=== PATIENT | female | born 1955 | race Caucasian/White ===

== ENCOUNTER → 2016-04-06 | Day surgery (SDC) | payer BC ==
[2016-03-30 13:46] VITALS: Ht 160 cm; Wt 71.8 kg
[~2016-04-06] VITALS: Ht 160 cm; Wt 71.8 kg
[~2016-04-06] MED LIST: 500ML BSS 0.3ML EPI 1:1000PF IRRIG ONE; ACETAMINOPHEN 325 MG TAB PO PRN; AMLO-110 PO; AMVISC PLUS 0.8ML SYRINGE INT OCU ONE; ATROPINE SULFATE 0.1 MG/ML 5ML SYR IV PRN; AcetaZOLAMIDE 250 MG TAB PO SCH; BETAXOLOL HCL 0.25% OP SUSP PER DROP CHARGE OPR SCH; BRIMONIDINE TART 0.2% OP SOLN PER DROP CHARGE ONE; BSS FLUSH ONE; CINN500T PO; ENDOCOAT 0.85ML SYRINGE INT OCU ONE; EpHEDrine SULFATE INJ 50 MG/ML AMP IV PRN; EpINEphrine INJ 1MG/ML AMP 1 MG/ML AMP ONE; FENTANYL CITRATE INJ 50 MCG/1 ML 2 ML VIAL IV PRN; FLAX1CAP11 PO; FLUMAZENIL 0.1 MG/1 ML 10 ML VIAL IV PRN; GLC/500 PO; GLC500 PO; GLUCTAB7 PO; HYDROmorphone INJ 2 MG/ML SYR/VIAL IV PRN; LABETALOL HCL IV 5 MG/ML 20ML IV PRN; LACTATED RINGER'S 1000ML 500 ML IV SCH; LIDOCAINE 4% OP SOLN DROP CHARGE ONE; LIDOCAINE 4% OP SOLN DROP CHARGE OPR SCH; LIDOCAINE HCL 1% MPF 2 ML VIAL ONE; LISI-725 PO; MELO15TA4 PO; MEPERIDINE HCL 25 MG/ML CARP IV PRN; MIDAZOLAM HCL 1 MG/ML 2ML VIAL ONE; MIX: 4ML BSS 1ML EPI 1:1000 PF INSTIL ONE; MOXIFLOXACIN OPH SOLN PER DROP CHARGE ONE; MULT-1016 PO; NALOXONE HCL 0.4 MG/1 ML VIAL/CARP IV PRN; OCUCOAT 1 ML SOLN IO ONE; ONDANSETRON INJ 2 MG/ML 2 ML VIAL IV PRN; PHENYLEPHRINE 100MCG/ML 5ML SYR IV PRN; POVIDONE-IODINE OP SOLN 30 ML BTL ONE; PROPARACAINE 0.5% OP SOLN PER DROP CHARGE OPR SCH; SIMV20TA2 PO; TOBRAMYCIN/DEXAMETHASONE OPH OINT PER APPLN CHARGE ONE; TRAJENTA PO; VISCOAT 0.5ML SYRINGE INT OCU ONE
[2016-04-06] MEDS: PHENYLEPHRINE HCL 2.5% OP SOLN PER DROP CHARGE OPR SCH ×2 (07:27→07:31)
[2016-04-06] MEDS: TROPICAMIDE 1% OP SOLN PER DROP CHARGE OPR SCH ×2 (07:28→07:32)
[2016-04-06] MEDS: CYCLOPENTOLATE HCL 1% OP SOLN PER DROP CHARGE OPR SCH ×2 (07:29→07:33)
[2016-04-06] MEDS: MOXIFLOXACIN OPH SOLN PER DROP CHARGE OPR SCH ×2 (07:30→07:40)
--- NOTE | 2016-04-06 07:30 | History & Physical Bridge - SC ---
H&P Re-Evaluation Bridge Note: I have examined the patient, reviewed the History & Physical and in the interval since the performance of the History & Physical I have noted the following changes of clinical significance: No changes noted
--- NOTE | 2016-04-06 08:26 | Discharge Instructions-SurgCtr ---
Discharge Instructions Visit Reason for Visit: Cataract Right Eye Discharge Goals Goal(s): Improve function Medications Stopped Medications Name(s): Stopped Metformin Monday04/04/16. Activity Recommendations Lifting Limitations: no more than 10 pounds Exercise/Sports Limitations: gradually increase as tolerated May Resume Sexual Activity: when tolerated Shower/Bathe: tomorrow Driving or Machine Use: resume 1 day after discharge Anesthesia . Post Anesthesia Instructions: If you have had General Anesthesia or IV Sedation: * Do not drive today. * Resume driving when surgeon permits. * Do not make important decisions or sign legal documents today. * Call surgeon for: 1. Temperature elevations greater than 101 degrees F. 2. Uncontrollable pain. 3. Excessive bleeding. 4. Persistent nausea and vomiting. 5. Medication intolerance (nausea, vomiting or rash). * For nausea and vomiting use only clear liquids such as: tea, soda, bouillon until nausea subsides, then gradually increase diet as tolerated. * If you have any concerns or questions, call your surgeon's office. If physician is unavailable and it is an emergency, call 911 or go to the nearest emergency room. . Instructions / Follow-Up Instructions / Follow-Up ACTIVITY RECOMMENDATIONS: * Light activities. * Mild irritation and blurred vision are common for the first few days. * You may walk outside, read, watch television. * Redness around the white part of the eye is common. MEDICATIONS: Resume previous medications unless instructed otherwise by your surgeon. * Take white Diamox (Acetazolamide) tablet at 1 pm today. Start all eye drops at 1 pm today: * Eye drops (today and tomorrow): Prednisone - one drop in operative eye every 3 hours while awake Ofloxacin - one drop in operative eye every 3 hours while awake SPECIAL CARE INSTRUCTIONS: * Tape plastic shield over eye to sleep at night. Call your doctor at with any concerns or problems. FOLLOW UP VISIT: Follow-up with Dr Krishna at [place] office as scheduled. Diet Recommendations Home Diet: resume previous diet Medical Emergencies . Who to Call and When: Medical Emergencies: If at any time you feel your situation is an emergency, please call 911 immediately. . Non-Emergent Contact . . "Provider Documentation" section prepared by Juan Manuel Krishna.
[2016-04-06 08:54] VITALS: TEMP 36.4
--- NOTE | 2016-04-06 08:55 | [facility] Post Operative Brief Note ---
Immediate Operative Summary Operative Date Apr 06, 2016. Pre-Operative Diagnosis Cataract Right Eye Post-Operative Diagnosis Same Procedure(s) Performed Right Cataract Phacoemulsification With Intraocular Lens Implant Surgeon Dr. Krishna Database Marketing Analyst Surgeon(s) None Estimated Blood Loss None Findings Cortical cataract right eye Fluids (cc crystalloids) 300 ml Specimens None Drains none Anesthesia L/S Complication(s) None Disposition Recovery Room / PACU
--- NOTE | 2016-04-06 09:15 | Anesthesia Progress Nt - [facility] ---
Anesthesia Post Op Note Date & Time Apr 06, 2016 at 09:14 Vital Signs Pain Intensity: 0 Vital Signs Past 12 Hours Date Time Temp Pulse Resp B/P Pulse Ox O2 Delivery O2 Flow Rate FiO2 04/06/16 08:54 36.4 70 16 149/81 98 Room Air 04/06/16 07:19 36.4 68 16 184/98 99 Room Air Notes Mental Status: alert / awake / arousable, participated in evaluation Pt Amnestic to Procedure: Yes Nausea / Vomiting: adequately controlled Pain: adequately controlled Airway Patency, RR, SpO2: stable & adequate BP & HR: stable & adequate Hydration State: stable & adequate Anesthetic Complications: no major complications apparent
[2016-04-06 09:16] VITALS: BP 157/84; PULSE 69; O2SAT 97
--- NOTE | 2016-04-06 09:18 | OPERATIVE REPORT ---
DATE OF OPERATION: 04/06/2016 PREOPERATIVE DIAGNOSIS: Presenile cortical cataract, right eye. POSTOPERATIVE DIAGNOSIS: Same. PROCEDURE: Phacoemulsification of right cataract with posterior chamber lens implant, type Bausch \T\ Lomb HOYA iSert 250, power +20.0 Diopters. ANESTHESIA: Local standby. SURGEON: Dr. Krishna. COMPLICATIONS: None. OPERATING TIME: 10 minutes. OPERATION AND FINDINGS: PROCEDURE: The right pupil was dilated. The anesthetic was administered using a topical technique. The right eye was prepped and draped. A speculum was placed. A paracentesis was placed. The chamber was filled with Amvisc Plus and Viscoat. Epinephrine solution was used. A clear corneal incision was formed. A capsulorrhexis was performed. The nucleus was hydrodissected. The lens was removed with phacoemulsification. Time was 2.13 seconds. The aspiration unit was used to remove the cortex. The capsule was filled with Amvisc Plus. The lens implant was folded and placed into the capsule. The incision was hydrated. The Amvisc was aspirated. The wound was secure. The chamber was deep. The pupil was round. Alphagan and TobraDex ointment and Vigamox solution were placed. The speculum was removed. DISPOSITION: The patient was returned to the recovery room in stable condition. I attest to the content of the Intraoperative Record and any orders documented therein. Any exceptions are noted below. I attest to the content of the Intraoperative Record and any orders documented therein. Any exceptions are noted below. STEPHANIE
== END | disposition home or self-care (01) ==
LOC: X.SURG 07:07
PROVIDERS: ATTEND Specialist
DX: H25.011 Cortical age-related cataract, right eye (principal); I10 Essential (primary) hypertension; E11.9 Type 2 diabetes mellitus without complications; Z88.0 Allergy status to penicillin

== ENCOUNTER 2016-07-01 22:24 | Emergency (ER) | payer OTHER, BC ==
[~2016-07-01] VITALS: Ht 160 cm; Wt 72.6 kg
[~2016-07-01 22:24] MED LIST changes: -500ML BSS 0.3ML EPI 1:1000PF IRRIG ONE; -ACETAMINOPHEN 325 MG TAB PO PRN; -AMVISC PLUS 0.8ML SYRINGE INT OCU ONE; -ATROPINE SULFATE 0.1 MG/ML 5ML SYR IV PRN; -AcetaZOLAMIDE 250 MG TAB PO SCH; -BETAXOLOL HCL 0.25% OP SUSP PER DROP CHARGE OPR SCH; -BRIMONIDINE TART 0.2% OP SOLN PER DROP CHARGE ONE; -BSS FLUSH ONE; -ENDOCOAT 0.85ML SYRINGE INT OCU ONE; -EpHEDrine SULFATE INJ 50 MG/ML AMP IV PRN; -EpINEphrine INJ 1MG/ML AMP 1 MG/ML AMP ONE; -FENTANYL CITRATE INJ 50 MCG/1 ML 2 ML VIAL IV PRN; -FLUMAZENIL 0.1 MG/1 ML 10 ML VIAL IV PRN; -GLC/500 PO; -HYDROmorphone INJ 2 MG/ML SYR/VIAL IV PRN; -LABETALOL HCL IV 5 MG/ML 20ML IV PRN; -LACTATED RINGER'S 1000ML 500 ML IV SCH; -LIDOCAINE 4% OP SOLN DROP CHARGE ONE; -LIDOCAINE 4% OP SOLN DROP CHARGE OPR SCH; -LIDOCAINE HCL 1% MPF 2 ML VIAL ONE; -MEPERIDINE HCL 25 MG/ML CARP IV PRN; -MIDAZOLAM HCL 1 MG/ML 2ML VIAL ONE; -MIX: 4ML BSS 1ML EPI 1:1000 PF INSTIL ONE; -MOXIFLOXACIN OPH SOLN PER DROP CHARGE ONE; -NALOXONE HCL 0.4 MG/1 ML VIAL/CARP IV PRN; -OCUCOAT 1 ML SOLN IO ONE; -ONDANSETRON INJ 2 MG/ML 2 ML VIAL IV PRN; -PHENYLEPHRINE 100MCG/ML 5ML SYR IV PRN; -POVIDONE-IODINE OP SOLN 30 ML BTL ONE; -PROPARACAINE 0.5% OP SOLN PER DROP CHARGE OPR SCH; -TOBRAMYCIN/DEXAMETHASONE OPH OINT PER APPLN CHARGE ONE; -VISCOAT 0.5ML SYRINGE INT OCU ONE
[2016-07-01 22:35] VITALS: Ht 160 cm; Wt 72.6 kg
[2016-07-01] MEDS ORDERED: IBUPROFEN 600 MG TAB PO STA (22:58)
[2016-07-01] MEDS ORDERED: ONDANSETRON 4MG OD TAB PO STA (22:58)
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
[2016-07-02] MEDS ORDERED: GLC/500 PO (00:19)
[2016-07-02 00:32] VITALS: BP 171/89; PULSE 79; O2SAT 96
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
--- NOTE | 2016-07-02 07:34 | DIAGNOSTIC IMAGING REPORT ---
LUMBAR SPINE CT CT DOSE: 663.33 mGy.cm HISTORY: Pt c/o low back pain TECHNIQUE: Multiaxial CT images of the lumbar spine were performed and reformatted in the sagittal and coronal plane without the use of contrast. COMPARISON: None. FINDINGS: No fractures. No subluxation. Paraspinal soft tissues are unremarkable. Moderate facet degenerative changes within the lower lumbar spine. Disc spaces are preserved. Partially imaged peripherally calcified 3.8 cm left renal lesion. The sacrum is intact. IMPRESSION: No fractures within the lumbar spine. Partially imaged peripherally calcified 3.8 cm left renal lesion. Recommend follow-up nonemergent dedicated renal CT for further evaluation. Electronically signed by: Gabe Cardenas M.D. 07/02/2016 7:32 AM Dictated Date/Time: 07/02/2016 7:29 AM
== END 2016-07-02 01:08 | disposition home or self-care (01) ==
LOC: EDBD 22:24 → C.EDB 22:27
DX: M54.2 Cervicalgia (principal); M54.9 Dorsalgia, unspecified; V43.52XA Car driver injured in collision with other type car in traffic accident, initial encounter; E11.9 Type 2 diabetes mellitus without complications; E78.5 Hyperlipidemia, unspecified; I10 Essential (primary) hypertension; Z83.3 Family history of diabetes mellitus; Z82.49 Family history of ischemic heart disease and other diseases of the circulatory system

== ENCOUNTER → 2016-07-04 | Outpatient (CLI) | payer BC ==
[~2016-07-04] MED LIST changes: -CINN500T PO; +GLC/500 PO; -GLC500 PO; -MELO15TA4 PO; -TRAJENTA PO
== END | disposition home or self-care (01) ==
LOC: C.LABSPEC 14:19
PROVIDERS: ATTEND Family Medicine
DX: J02.9 Acute pharyngitis, unspecified (principal)

== ENCOUNTER → 2016-10-28 | Outpatient (CLI) | payer BC ==
[2016-10-28 12:26] LABS: BASO % 0.8 %; BASO ABS # 0.06 K/uL (0-0.2); COMPLETE YES; EOS % 4.8 %; HEMATOCRIT 43.5 % (37-47); IG% 0.7 %; LYMPH % 32.1 %; LYMPH ABS # 2.43 K/uL (1.2-3.4); MEAN CELL VOLUME 87.9 fL (80-100); MEAN CORPUSCULAR HEMOGLOBIN 30.9 pg (25-34); MEAN CORPUSCULAR HGB CONC 35.2 g/dl (32-36); MEAN PLATELET VOLUME 10.8 fL (7.4-10.4); MONO % 6.6 %; PLATELET COUNT 292 K/uL (130-400); RED BLOOD COUNT 4.95 M/uL (4.2-5.4); WHITE BLOOD COUNT 7.56 K/uL (4.8-10.8)
[2016-10-28 12:28] LABS: ALT/SGPT 52 U/L (12-78); AST/SGOT 20 U/L (15-37); BLOOD UREA NITROGEN 14 mg/dl (7-18); BUN/CREATININE RATIO 17.7 (10-20); CALCIUM 9.5 mg/dl (8.5-10.1); CARBON DIOXIDE 28 mmol/L (21-32); CHLORIDE 104 mmol/L (98-107); CHOLESTEROL 221 mg/dl (0-200); GLUCOSE 122 mg/dl (70-99); POTASSIUM 4.2 mmol/L (3.5-5.1); SODIUM 139 mmol/L (136-145); TRIGLYCERIDES 208 mg/dl (0-150); URIC ACID 5.3 mg/dl (2.6-7.2); VERY LOW DENSITY LIPOPROT CALC 42 mg/dl
[2016-10-28 12:36] LABS: ESTIMATED AVERAGE GLUCOSE 163 mg/dl; HA1C FLAG Normal (Normal)
[2016-10-28 12:37] LABS: ALB/GLOB RATIO 1.1 (0.9-2); ALKALINE PHOSPHATASE 80 U/L (45-117); CHOLESTEROL/HDL RATIO 3.7; HDL CHOLESTEROL 59 mg/dl; LDL CHOLESTEROL CALCULATED 120 mg/dl; PHOSPHORUS 3.3 mg/dl (2.5-4.9)
[2016-10-31 13:20] LABS: C-REACTIVE PROT HIGHSEN 3.1 MG/L
== END | disposition home or self-care (01) ==
LOC: C.LAB1850 09:52
PROVIDERS: ATTEND Family Medicine
DX: R73.09 Other abnormal glucose (principal); E55.9 Vitamin D deficiency, unspecified; D51.9 Vitamin B12 deficiency anemia, unspecified

== ENCOUNTER 2017-05-05 05:35 | Inpatient (IN) | payer BC ==
[2017-04-14 13:09] VITALS: BMI 28.0
--- NOTE | 2017-04-14 13:33 | PAT Medication Instructions ---
Service Date Apr 14, 2017. Current Home Medication List Amlodipine Besylate (Amlodipine Besylate), 1 TAB PO QAM Flaxseed (Linseed) (Flax Seed Oil), 1 CAP PO QAM Cgxtumzywqf-Qwkqwoqoxwr-Mxv C- (Glucosamine Chondroitin), 1 TAB PO QAM Exsgtyfkqwn-Xoytnpkyure-Dwd C- (Glucosamine Chondroitin), 1 CAP PO QPM Linagliptin (Tradjenta), 1 TAB PO QD@16 Lisinopril (Zestril), 20 MG PO QAM Lorazepam (Ativan), 0.5 MG PO Q6H PRN for Anxiety/Agitation Meloxicam (Meloxicam), 1 TAB PO QAM Metformin Hcl (Glucophage), 500 MG PO BID Multiple Vitamins W/ Minerals (Multivitamin Women 50+), 1 TAB PO QAM Simvastatin (Zocor), 20 MG PO QPM Medication Instructions For Your Scheduled Surgery - Check with surgeon for instructions: Meloxicam (Meloxicam), 1 TAB PO QAM - Hold the following medications 2 weeks days prior to surgery: Flaxseed (Linseed) (Flax Seed Oil), 1 CAP PO QAM Gbcaqdhonge-Cmcsmisizhq-Nlw C- (Glucosamine Chondroitin), 1 TAB PO QAM Hqocqbrwjcv-Sbtbvsefpqv-Jxs C- (Glucosamine Chondroitin), 1 CAP PO QPM - Hold the following medications 24 hours prior to surgery: - Hold the following medications 48 hours prior to surgery: Metformin Hcl (Glucophage), 500 MG PO BID - Hold the following medications the morning of surgery: Lisinopril (Zestril), 20 MG PO QAM Multiple Vitamins W/ Minerals (Multivitamin Women 50+), 1 TAB PO QAM - Take the following medications the morning of surgery with a sip of water: Lorazepam (Ativan), 0.5 MG PO Q6H PRN for Anxiety/Agitation (if needed) Amlodipine Besylate (Amlodipine Besylate), 1 TAB PO QAM - Take the following medications as scheduled the night before surgery: Lorazepam (Ativan), 0.5 MG PO Q6H PRN for Anxiety/Agitation (if needed) Linagliptin (Tradjenta), 1 TAB PO QD@1600 If you have any questions please call us at [phone] or [phone] or [phone]
--- NOTE | 2017-04-14 14:22 | DIAGNOSTIC IMAGING REPORT ---
CHEST 2 VIEWS ROUTINE CLINICAL HISTORY: PAT preoperative evaluation COMPARISON STUDY: 04/24/2013 FINDINGS: The bones soft tissues and hemidiaphragms are normal. The cardiomediastinal silhouette is normal. The lungs are clear. The pulmonary vasculature is normal. IMPRESSION: Negative chest. The above report was generated using voice recognition software. It may contain grammatical, syntax or spelling errors. Electronically signed by: Reilly Akbar M.D. 04/14/2017 2:21 PM Dictated Date/Time: 04/14/2017 2:21 PM
[2017-04-14 14:28] LABS: BASO % 1.3 %; BASO ABS # 0.09 K/uL (0-0.2); EOS % 5.4 %; EOS ABS # 0.38 K/uL (0-0.5); HEMOGLOBIN 14.3 g/dL (12.0-16.0); IG# 0.01 K/uL (0.00-0.02); LYMPH % 29.7 %; MEAN CELL VOLUME 87.8 fL (80-100); MEAN CORPUSCULAR HEMOGLOBIN 30.6 pg (25-34); MEAN CORPUSCULAR HGB CONC 34.9 g/dl (32-36); MEAN PLATELET VOLUME 11.4 fL (7.4-10.4); MONO % 8.1 %; MONO ABS # 0.57 K/uL (0.11-0.59); NEUT % 55.4 %; NEUT ABS # 3.92 K/uL (1.4-6.5); PLATELET COUNT 239 K/uL (130-400); RED CELL DISTRIBUTION WIDTH CV 13.2 % (11.5-14.5); WHITE BLOOD COUNT 7.07 K/uL (4.8-10.8)
[2017-04-14 14:37] LABS: INR 0.9 (0.9-1.1); PTT PATIENT 25.4 SECONDS (21.0-31.0)
[2017-04-14 15:31] LABS: CALCIUM 9.9 mg/dl (8.5-10.1); CREATININE 0.75 mg/dl (0.60-1.20); POTASSIUM 3.9 mmol/L (3.5-5.1)
[2017-04-15 06:16] LABS: HEMOGLOBIN A1C 6.9 % (4.5-5.6)
--- NOTE | 2017-04-26 21:46 | HISTORY & PHYSICAL EXAMINATION ---
DATE OF ADMISSION: 05/05/2017 CHIEF COMPLAINT: Bilateral knee pain and discomfort, right side greater than left. HISTORY OF PRESENT ILLNESS: This is a 61-year-old female works at [employer] who presents for surgical treatment of her right knee. She has been a long-term patient of Dr. Warner. She is now referred to me for treatment of her right knee. She has a long history of bilateral knee pain and discomfort, right side greater than left. She has been to injections which provided some temporary relief, but become less successful over time. She now would like to proceed with surgical treatment. She has limited walking tolerance. The more she walks, the more she hurts. She limps more as the day goes on. PAST MEDICAL HISTORY: 1. Hypertension. 2. Elevated cholesterol. 3. Anxiety. 4. Diabetes x11 years. PAST SURGICAL HISTORY: Include: 1. Laparoscopy. 2. x2. 3. Cholecystectomy. 4. Appendectomy. ALLERGIES: AMOXICILLIN, REACTION IS UNKNOWN. CURRENT MEDICINES: Include: 1. Metformin. 2. Mobic. 3. Simvastatin. 4. Tradjenta. 5. Lisinopril. 6. Multivitamin. 7. Flaxseed oil. 8. Amlodipine. SOCIAL HISTORY: A 61-year-old female. She is and works at [employer]. FAMILY HISTORY: Negative for heart disease, diabetes, or blood clots. REVIEW OF SYSTEMS: Negative for DVT or PE. She does have pretty well controlled diabetes with an A1c of 6.9. No chest pain or shortness of breath. No bleeding problems. PHYSICAL EXAMINATION: GENERAL: Reveals a pleasant 61-year-old white female. EXTREMITIES: Looks to be in reasonably good health. HEENT: Benign. NECK: Supple. No lymphadenopathy. LUNGS: Clear to auscultation. HEART: Regular rate and rhythm. ABDOMEN: Soft, nontender, nondistended. EXTREMITIES: Grossly neurovascularly intact except as follows: Examination of both knees shows the patient walks with a waddling gait. Examination of the right knee reveals varus alignment. With weightbearing, she has a varus thrust. She is tender over the medial joint line. She has bony hypertrophy medially. Range of motion is about 5 degrees short of full extension about 110 degrees of flexion. No instability. X-RAYS: X-rays of both knees reveal advanced bilateral knee DJD. She has complete loss of medial joint space with tibial femoral subluxation. ASSESSMENT: A 61-year-old white female with advanced bilateral knee degenerative joint disease, right side worse than left. She has failed conservative treatment and would like to have her right knee replaced. PLAN: We will take her to the operating room and do a right total knee replacement. The risks and benefits of this procedure were explained to the patient including but not limited to DVT, PE, , infection, neurological injury, vascular injury, bleeding problem, pain, limited range of motion, stiffness, failure to relief her symptoms, incomplete relief of symptoms, need for further surgery in the future, fracture, leg length inequality, nerve palsy, need for blood transfusion. The patient understands and desires to proceed. Informed consent was obtained. We did talk about holding her metformin 2 days preop and the Mobic 10 days preop. She will hold the lisinopril the morning of surgery. We will likely give her Ancef as her penicillin allergies is unclear. As far as discharge plans, she is planning to be discharged to home with her 's help and the [facility] home health program.
[2017-05-05] VITALS (9 sets, daily range): BP systolic 116–164; BP diastolic 66–88; PULSE 58–68; TEMP 36.4–36.8; O2SAT 95–100; Ht 160 cm; Wt 71.8 kg
[~2017-05-05] VITALS: Ht 160 cm; Wt 71.8 kg
[~2017-05-05 05:35] MED LIST changes: -AMLO-110 PO; +GLUC1CAP35 PO; +LINA1TAB PO; +LORA-741 PO; +MELO-83 PO; +NRV/10 PO
[2017-05-05] MEDS ORDERED: BUPIVACAINE LIPOSOME 266 MG, BUPIVACAINE/EPINEPHRINE INJ 50 ML, SODIUM CHLORIDE 0.9% PF... INFIL SCH ×3 (06:00)
[2017-05-05] MEDS ORDERED: LACTATED RINGER'S 1000ML 1,000 ML IV SCH (06:00)
[2017-05-05] MEDS ORDERED: LACTATED RINGER'S 1000ML IV SCH (06:00)
[2017-05-05] MEDS ORDERED: SCOPOLAMINE 1.5 MG TDSY TD SCH (06:00)
[2017-05-05] MEDS ORDERED: ACETAMINOPHEN 500 MG TAB PO SCH (06:00)
[2017-05-05] MEDS ORDERED: METOCLOPRAMIDE HCL 10 MG TAB PO SCH (06:00)
[2017-05-05] MEDS ORDERED: CEFAZOLIN 2000MG IV PUSH 15 ML IV SCH (06:00)
[2017-05-05] MEDS ORDERED: FAMOTIDINE 20 MG TAB PO SCH (06:00)
[2017-05-05] MEDS ORDERED: TRANEXAMIC ACID INJ 1,000 MG x 1 Bag Preop IV SCH ×2 (06:00)
[2017-05-05] MEDS ORDERED: GABAPENTIN 600 MG PO SCH (06:00)
[2017-05-05] MEDS ORDERED: BUPIVACAINE 0.5 % 5 MG/1 ML PF 10ML VIAL ONE (06:11)
[2017-05-05] MEDS ORDERED: BUPIVACAINE 0.25% 30 ML VIAL ONE (06:12)
[2017-05-05] MEDS ORDERED: PROPOFOL IV EMULSION 10 MG/ML 20 ML VIAL IV ONE (06:15)
[2017-05-05] MEDS ORDERED: FENTANYL CITRATE INJ 50 MCG/1 ML 2 ML VIAL ONE (06:15)
[2017-05-05] MEDS ORDERED: MIDAZOLAM HCL 1 MG/ML 2ML VIAL ONE ×2 (06:16→07:27)
[2017-05-05] MEDS ORDERED: BACITRACIN 50000 UNIT VIAL ONE (06:29)
[2017-05-05] MEDS ORDERED: SODIUM CHLORIDE 0.9% PF 50 ML VIAL ONE (06:29)
[2017-05-05] MEDS ORDERED: BUPIVACAINE LIPOSOME 1/3% 266 MG/20 ML VIAL INFIL ONE (06:29)
[2017-05-05] MEDS ORDERED: BUPIVACAINE/EPINEPHRINE 0.25% 1:200,000 30 ML VIAL ONE (06:31)
[2017-05-05] MEDS ORDERED: PHENYLEPHRINE 100MCG/ML 5ML SYR IV PRN (07:15)
[2017-05-05] MEDS ORDERED: HYDROmorphone INJ 2 MG/ML SYR/VIAL IV PRN (07:15)
[2017-05-05] MEDS ORDERED: ATROPINE SULFATE 0.1 MG/ML 5ML SYR IV PRN (07:15)
[2017-05-05] MEDS ORDERED: KETOROLAC TROMETHAMINE 30 MG/ML VIAL IV. PRN (07:15)
[2017-05-05] MEDS ORDERED: ONDANSETRON INJ 2 MG/ML 2 ML VIAL IV PRN ×2 (07:15→09:15)
[2017-05-05] MEDS ORDERED: EpHEDrine SULFATE INJ 50 MG/ML AMP IV PRN (07:15)
[2017-05-05] MEDS ORDERED: BUPIVACAINE/EPINEPHRINE 0.25% 1:200,000 30 ML VIAL INJ ONE (08:01)
[2017-05-05] MEDS ORDERED: PHENYLEPHRINE 100MCG/ML 5ML SYR ONE (08:31)
--- NOTE | 2017-05-05 09:03 | [facility] Post Operative Brief Note ---
Immediate Operative Summary Operative Date May 05, 2017. Pre-Operative Diagnosis Advanced Right Knee Degenerative Joint Disease Post-Operative Diagnosis Advanced Right Knee Degenerative Joint Disease Procedure(s) Performed Right Total Knee Arthroplasty Surgeon Dr. Montenegro Production Lapping Machine Operator Surgeon(s) DIEGO Felder Estimated Blood Loss 50 ml Findings Consistent with Post-Op Diagnosis Fluids (cc crystalloids) 1200 cc Specimens A. Right Knee Bone and Tissue Drains None Anesthesia Type MAC Spinal Regional Complication(s) none Disposition Accompanied Pt To Recover: no Disposition: Recovery Room / PACU
[2017-05-05] MEDS ORDERED: GLUCOSE 40% GEL 15 GM TUBE PO PRN (09:15)
[2017-05-05] MEDS ORDERED: GLUCOSE 10 TABS/TUBE PO PRN (09:15)
[2017-05-05] MEDS ORDERED: METOCLOPRAMIDE HCL INJ 5 MG/ML 2 ML VIAL IV PRN (09:15)
[2017-05-05] MEDS ORDERED: DiphenhydrAMINE HCL 50 MG/ML VIAL IV PRN (09:15)
[2017-05-05] MEDS ORDERED: GLUCAGON FOR INJ 1 MG VIAL SQ PRN (09:15)
[2017-05-05] MEDS ORDERED: LORAZEPAM 0.5 MG TAB PO PRN (09:15)
[2017-05-05] MEDS ORDERED: ALUMINUM/MAGNESIUM/SIMETH (MAALOX MAX) 30 ML UDC PO PRN (09:15)
[2017-05-05] MEDS ORDERED: SILVER SULFADIAZINE 1% CR 50 GM JAR EXT PRN (09:15)
[2017-05-05] MEDS ORDERED: CEFAZOLIN IV 1,000 MG in DEXTROSE 5% 50ML 50 ML IV SCH (09:15)
[2017-05-05] MEDS ORDERED: BISACODYL 10 MG SUPP PR PRN (09:15)
[2017-05-05] MEDS ORDERED: MoRPHine SULFATE 2 MG/ML CARP IV PRN (09:15)
[2017-05-05] MEDS ORDERED: ZOLPIDEM TARTRATE 5 MG TAB PO PRN (09:15)
[2017-05-05] MEDS ORDERED: MAGNESIUM HYDROXIDE SUSP 30 ML UDC PO PRN (09:15)
[2017-05-05] MEDS ORDERED: DEXTROSE 50% 50 ML SYR IV PRN (09:15)
--- NOTE | 2017-05-05 09:43 | OPERATIVE REPORT ---
DATE OF OPERATION: 05/05/2017 SURGEON: Dr. Robin Montenegro. STOCK HANDLER FLOORPERSON: DIEGO Taylor PREOPERATIVE DIAGNOSIS: Right knee degenerative joint disease. POSTOPERATIVE DIAGNOSIS: Same. PROCEDURE PERFORMED: Right cemented posterior stabilized total knee arthroplasty. COMPLICATIONS: None. ESTIMATED BLOOD LOSS: 50 mL FLUID REPLACEMENT: 1200 mL crystalloid fluid replacement. TOURNIQUET TIME: 52 minutes at 300 mmHg. ANESTHESIA: Spinal with adductor canal block. DRAINS: None. SPECIMENS: Right knee sent for pathology. OPERATIVE INDICATIONS: The patient is a 61-year-old female who has had a long history of bilateral knee pain and discomfort, right side a bit worse than the left. She has been admitted by my partner Dr. Warner over the years. Symptoms failed to respond to conservative treatment. X-rays revealed advanced DJD. The patient elected to proceed with operative treatment. OPERATIVE FINDINGS: Operative findings revealed advanced grade 4 [id number] disease in the medial femoral condyle and medial tibial plateau. She also had grade 4 changes in the patellofemoral joint. The lateral compartment was fairly well spared. She had a varus deformity to her knee with a [id number] effusion. OPERATIVE IMPLANTS: Operative implants consisted of: 1. Biomet Vanguard size 60 right posterior stabilized femoral component. 2. Biomet size 63 tibial tray. 3. A 10-mm posterior stabilized polyethylene insert. 4. A 28 x 8 all poly patella. OPERATIVE PROCEDURE: The patient was taken to the operating room, identified and placed on the operating table in supine position. All contact areas were appropriately padded. IV antibiotics were provided by the anesthesia team. A spinal anesthetic and adductor canal block had been provided in the holding area. Merino catheter was placed in sterile fashion. Right thigh tourniquet was then placed and the right lower extremity was then prepped and draped in the usual sterile fashion. The right leg was elevated and exsanguinated with Esmarch. Tourniquet was placed at 300 mmHg. An anterior approach to the right knee was then performed through a longitudinal incision centered over the patella. Sharp dissection was carried out through the subcutaneous tissues down to the level of the extensor mechanism. A medial parapatellar arthrotomy incision was made. Some subperiosteal dissection was carried out medially. The fat pad was resected from beneath the patellar tendon. The lateral patellofemoral ligament was released. The patella was everted and knee was flexed. The osteophytes were taken off the distal femur. The ACL and PCL were then released from the distal femur and the tibia subluxated anteriorly. The external tibial alignment jig was then placed in the anterior face of the tibia and adjusted 8 mm medially. Proximal tibial cut was made to remove about a millimeter of bone from the most deficient aspect of the medial tibial plateau. Tibia was sized to a size 63. Some osteophytes were taken off medial and posteromedially. Attention was then drawn to the femur. The distal femur was entered with a sharp drill. Intramedullary canal was suctioned. A right 5-degree valgus cutting guide was placed. Distal femoral cut was made to take an additional 3 mm of bone off the distal femur. The femur was then sized to a size 60. We did downsize this slightly. The AP cutting block was pinned parallel to the epicondylar axis, which was 3 degrees of external rotation. The anterior cut, anterior chamfer, posterior cut, posterior chamfer cuts were made. Box cutting guide was placed and adjusted slightly lateral and the box cut was made. The knee was flexed. The remnants of the medial and lateral menisci were excised. The osteophytes were taken off the posterior aspect of the femur. Trial femoral component was placed. Tibial tray was pinned in maximum external rotation and the drill and stem punch were used to create defect in proximal tibia for the tibial tray. The knee was then trialed and the 10 mm insert fit most appropriately. Attention was then drawn to the patella. The patella was cleaned of all soft tissues. Patellar thickness measured 22 mm in thickness and was cut down to 13. It was sized to a size 28 patella. Lug holes were drilled for the 28 patella. The lateral osteophyte was removed. Patella button was placed. Knee was taken through range of motion and the patella tracked nicely with no thumbs test. Attention was then drawn toward placement of permanent components. All trial components were removed. A bone plug was placed in the distal femur to limit blood loss. A double batch of Palacos G cement was mixed. A right size 60 posterior stabilized femoral component, size 63 tibial tray, a 10-mm posterior stabilized polyethylene insert, and 28 x 8 all poly patella were then cemented in place. Knee was brought out into full extension until cement hardened. A final cement check was then performed. Pericapsular tissues were injected with a total of 100 mL of a combination of 20 mL of Exparel, 30 mL of normal saline, 50 mL of 0.25% Marcaine with epinephrine. The patient did receive 1 gram of tranexamic acid. The tourniquet was then let down for a final tourniquet time of 52 minutes. Hemostasis was assured with use of electrocautery. The extensor mechanism was then closed with a combination of #1 PDS suture and #1 Vicryl suture in a [id number] fashion. Extensor mechanism was checked and found to be intact. The subcutaneous tissues were then closed with 2-0 Dexon suture in a buried interrupted fashion. Skin was closed skin florencio. Leg was then cleaned and dried and a sterile dressing of Xeroform, 4 x 4's, sterile cast padding and Harsh bandage were applied. The patient was then transferred to the recovery room in stable condition. The patient tolerated the procedure well with no complications. All needle and sponge counts were correct at the end of the operation. I attest to the content of the Intraoperative Record and any orders documented therein. Any exception s are noted below.
--- NOTE | 2017-05-05 09:46 | DIAGNOSTIC IMAGING REPORT ---
R KNEE 1 OR 2 VIEWS ROUTINE CLINICAL HISTORY: 61 years-old Female presenting with AP/LATERAL IN PACU RIGHT KNEE. TECHNIQUE: Frontal and lateral views of the right knee were obtained. COMPARISON: 04/26/2017. FINDINGS: Postsurgical changes of total right knee arthroplasty with patellar resurfacing. Expected intra-articular and soft tissue emphysema. Overlying skin florencio noted. No malalignment or hardware complication. No fracture. IMPRESSION: Expected postsurgical appearance status post total right knee arthroplasty with patellar resurfacing. Electronically signed by: Edgard Mena M.D. 05/05/2017 9:45 AM Dictated Date/Time: 05/05/2017 9:44 AM
--- NOTE | 2017-05-05 11:35 | Anesthesiology Progress Note ---
Anesthesia Post Op Note Date & Time May 05, 2017 at 11:35 Vital Signs Pain Intensity: 0.0 Vital Signs Past 12 Hours Date Time Temp Pulse Resp B/P (MAP) Pulse Ox O2 Delivery O2 Flow Rate FiO2 05/05/17 10:55 36.4 60 19 124/70 (88) 100 Nasal Cannula 2.0 05/05/17 10:23 36.4 68 18 124/72 (89) 100 Nasal Cannula 2.0 05/05/17 09:55 36.5 68 16 116/66 (83) 95 Nasal Cannula 2.0 05/05/17 09:55 95 Nasal Cannula 2.0 05/05/17 09:55 Nasal Cannula 2.0 05/05/17 09:45 36.1 66 17 113/61 98 Nasal Cannula 2 05/05/17 09:35 69 21 107/59 100 Nasal Cannula 2 05/05/17 09:25 68 17 110/60 96 Nasal Cannula 2 05/05/17 09:15 67 18 111/58 98 Nasal Cannula 2 05/05/17 09:06 36.3 67 15 104/61 98 Nasal Cannula 2 05/05/17 05:40 36.8 64 18 164/73 97 Room Air Notes Mental Status: alert / awake / arousable, participated in evaluation Pt Amnestic to Procedure: Yes Nausea / Vomiting: adequately controlled Pain: adequately controlled Airway Patency, RR, SpO2: stable & adequate BP & HR: stable & adequate Hydration State: stable & adequate Anesthetic Complications: no major complications apparent
[2017-05-05] MEDS: INSULIN HUMAN REGULAR SC SCH ×3 (12:00→21:30)
[2017-05-05] MEDS: KETOROLAC TROMETHAMINE 30 MG/ML VIAL IV. SCH ×2 (12:01→17:49)
[2017-05-05] MEDS: FERROUS GLUCONATE 324 MG TAB PO SCH ×2 (13:20→17:50)
[2017-05-05] MEDS: ACETAMINOPHEN 500 MG TAB PO SCH ×2 (13:21→21:21)
[2017-05-05] MEDS: SODIUM CHLORIDE 0.9% 1000ML 1,000 ML IV SCH ×2 (13:45→21:17)
[2017-05-05] MEDS ORDERED: TRANEXAMIC ACID INJ 1,000 MG in SODIUM CHLORIDE 0.9% 100ML 100 ML IV SCH (14:00)
[2017-05-05] MEDS: CEFAZOLIN IV 1,000 MG in SYRINGE 0 ML IV SCH (15:34)
[2017-05-05] MEDS: CHECK SCOPOLAMINE PATCH PLACEMENT SCH (15:37)
[2017-05-05] MEDS: OXYCODONE HCL IR 5 MG TAB (IMMEDIATE RELEASE) PO PRN ×2 (16:47→21:31)
--- NOTE | 2017-05-05 18:08 | PROGRESS NOTE ---
DATE: 05/05/2017 SUBJECTIVE: A 61-year-old white female postop from a right knee replacement. She is doing pretty well. Having some pain. No chest pain or shortness of breath. Not feeling dizzy or lightheaded. OBJECTIVE: VITAL SIGNS: Temperature is 36.7. Vital signs stable. GENERAL: Reveals a healthy pleasant, middle-aged female. She is sitting up in bed and looks reasonably comfortable, some apparent discomfort. LUNGS: Clear to auscultation. HEART: Has a regular rate and rhythm. ABDOMEN: Soft, nontender, nondistended. EXTREMITIES: Grossly neurovascularly intact except as follows. Examination of the right lower extremity reveals the dressing to be clean, dry and intact. The patient can dorsiflex and plantarflex her foot appropriately. She is neurologically intact. IMAGING DATA: X-rays of the right knee from recovery room were reviewed. It shows a right cemented total knee arthroplasty. Components are in good position. No signs of problems. ASSESSMENT: A 61-year-old female postop from a right knee replacement, doing well. Pain has been reasonably well controlled. She is neurologically intact. PLAN: 1. DVT prophylaxis including thigh-high TEDs, SCDs, and aspirin twice a day. 2. PT/OT. Weightbearing as tolerated. Right total knee protocol. 3. Pain control. Doing reasonably well with current pain regimen. 4. IV antibiotics x24 hours. 5. Disposition: Plan to discharge to home with some home health once adequately recovered.
[2017-05-05] MEDS: TAPENTADOL ER 50 MG TABCR PO SCH (21:19)
[2017-05-05] MEDS: ASPIRIN 81 MG ECTAB PO SCH (21:20)
[2017-05-05] MEDS: DOCUSATE SODIUM 100 MG CAP PO SCH (21:20)
[2017-05-05] MEDS: SENNA 8.6 MG TAB PO SCH (21:20)
[2017-05-05] MEDS: SIMVASTATIN 20 MG TAB PO SCH (21:21)
[2017-05-06 00:05] VITALS: O2SAT 95
[2017-05-06] MEDS: CEFAZOLIN IV 1,000 MG in SYRINGE 0 ML IV SCH (00:09)
[2017-05-06] MEDS: KETOROLAC TROMETHAMINE 30 MG/ML VIAL IV. SCH ×5 (00:09→23:16)
[2017-05-06] MEDS: CHECK SCOPOLAMINE PATCH PLACEMENT SCH ×4 (00:10→23:17)
[2017-05-06 03:50] VITALS: BP 127/71; PULSE 60; TEMP 36.7; O2SAT 97
[2017-05-06 05:55] LABS: HEMATOCRIT 38.6 % (37-47); HEMOGLOBIN 13.5 g/dL (12.0-16.0); MEAN CELL VOLUME 87.9 fL (80-100); MEAN CORPUSCULAR HEMOGLOBIN 30.8 pg (25-34); MEAN PLATELET VOLUME 10.6 fL (7.4-10.4); PLATELET COUNT 196 K/uL (130-400); RED CELL DISTRIBUTION WIDTH SD 41.7 fL (36.4-46.3); WHITE BLOOD COUNT 9.27 K/uL (4.8-10.8)
[2017-05-06] MEDS: ACETAMINOPHEN 500 MG TAB PO SCH ×3 (06:01→22:16)
[2017-05-06 06:22] LABS: CALCIUM 8.6 mg/dl (8.5-10.1); CREATININE 0.72 mg/dl (0.60-1.20); POTASSIUM 4.1 mmol/L (3.5-5.1)
[2017-05-06 07:21] VITALS: BP 187/82; PULSE 65; TEMP 37; O2SAT 99
--- NOTE | 2017-05-06 08:26 | PROGRESS NOTE ---
DATE: 05/06/2017 SUBJECTIVE: A 61-year-old white female postop day 1 from a right knee replacement. Pain has been relatively well controlled overnight. No chest pain or shortness of breath. Her only complaint is some vaginal itching, which is improved with Benadryl. OBJECTIVE: VITAL SIGNS: Temperature 37.0. Vital signs stable. Some mild hypertension. PHYSICAL EXAMINATION: GENERAL: Reveals a pleasant, middle-aged female. She is sitting up in bed and looks comfortable. EXTREMITIES: Examination of the right leg reveals the dressing to be clean, dry and intact. She can dorsiflex and plantarflex her foot appropriately. She is neurologically intact. LABORATORY DATA: Hemoglobin 13.5. Hematocrit 38.6. Electrolytes are stable. ASSESSMENT: A 61-year-old white female postop day 1 from a right knee replacement, doing pretty well. Pain is controlled. She is neurologically intact. She has had this vaginal itching, which seems to be improved with Benadryl. It could be secondary to pain medicine versus a yeast infection. PLAN: 1. DVT prophylaxis including thigh-high TEDs, SCDs, and aspirin twice a day. 2. PT/OT. Weightbearing as tolerated. Right total knee protocol. 3. Pain control. Doing well with current pain regimen. 4. Vaginal itching. This is improved with Benadryl. We will follow this over hospital stay, but she may need to be treated for a yeast infection if continues to have symptoms. It would be unlikely if she gets symptoms from antibiotic management so quickly. 5. Disposition: She is able to be discharged to home with home health once adequately recovered. STEPHANIE
[2017-05-06] MEDS: SODIUM CHLORIDE 0.9% 1000ML 1,000 ML IV SCH (08:50)
[2017-05-06] MEDS: DOCUSATE SODIUM 100 MG CAP PO SCH ×2 (08:51→21:03)
[2017-05-06] MEDS: LISINOPRIL 20 MG TAB PO SCH (08:51)
[2017-05-06] MEDS: PANTOprazole SOD 40 MG TAB PO SCH (08:52)
[2017-05-06] MEDS: AMLODIPINE BESYLATE 5 MG TAB PO SCH (08:52)
[2017-05-06] MEDS: CEROVITE ADV FORMULA TAB PO SCH (08:52)
[2017-05-06] MEDS: ASPIRIN 81 MG ECTAB PO SCH ×2 (08:52→21:03)
[2017-05-06] MEDS: FERROUS GLUCONATE 324 MG TAB PO SCH ×3 (08:52→17:47)
[2017-05-06] MEDS ORDERED: MULTIVITAMIN TAB PO SCH (09:00)
[2017-05-06] MEDS: INSULIN HUMAN REGULAR SC SCH ×4 (09:03→21:08)
[2017-05-06] MEDS: OXYCODONE HCL IR 5 MG TAB (IMMEDIATE RELEASE) PO PRN ×3 (09:04→22:18)
[2017-05-06] MEDS: TAPENTADOL ER 50 MG TABCR PO SCH ×2 (09:04→21:03)
[2017-05-06 15:10] VITALS: BP 151/74; PULSE 76; TEMP 36.9; O2SAT 94
[2017-05-06] MEDS ORDERED: ACET-24 PO (20:42)
[2017-05-06] MEDS ORDERED: ASPEC81 PO (20:42)
[2017-05-06] MEDS ORDERED: RXC5 PO (20:42)
--- NOTE | 2017-05-06 20:46 | Discharge Instructions ---
Discharge Instructions Date of Service May 06, 2017. Admission Reason for Admission: Right Knee Degenerative Joint Disease Discharge Discharge Diagnosis / Problem: Right Knee Replacement Discharge Goals Goal(s): Decrease discomfort, Improve function, Increase independence, Improve disease control, Therapeutic intervention Activity Recommendations Activity Limitations: per Instructions/Follow-up section Weightbearing Status: Right weightbearing . Instructions / Follow-Up Instructions / Follow-Up ACTIVITY RECOMMENDATIONS: Physical Therapy: * You will go to physical therapy three times each week for four to six weeks after your surgery in order to regain your knee range of motion and to retrain your knee to work properly. * It is just as important to make sure you are getting your knee perfectly straight as it is to regain your knee bend. * Taking a pain pill an hour before therapy can help you have a more productive and comfortable therapy session. Home Exercise: * You were shown a series of exercises (heel props, heel slides, etc.) in the hospital. Do these exercises three to four times each day including the exercises you were shown in physical therapy. Walking: * Get up and walk several times each day. For the first four weeks, try not to stand or walk for more than one hour at a time. If you do stand or walk for more than one hour, you will not hurt anything, but your knee and leg will likely swell. * As you feel comfortable, you may change from the walker or crutches to a cane and then to independent walking. MEDICATIONS: New Medicine: * You will likely be taking one or more of these medications: 1. Oxycodone - A quick and shorter-acting pain medication. Take one to two tablets every four to six hours to lessen your pain. 2. Aspirin - Thins your blood to lessen the chance of forming a blood clot. * The most common side effects of pain medicine and iron are nausea and constipation. If nausea or constipation is too much of a problem or if you have any questions about your new medicines or doses, call [facility] at . We will try to help you manage these issues. VERY IMPORTANT TO READ AND REVIEW" Pain: * The immediate post-operative period after knee replacement surgery is often quite painful. * You are given a prescription for pain medicine. You should take it, as directed, when you need it, especially before physical therapy and before going to bed. Pain that interferes with sleep is very common and can last several months. * You will likely need pain medicine for the first four to six weeks. It will not stop all of the pain. The pain will lessen and as you feel better, you may change to milder pain medicine such as Tylenol. * The most common side effects of pain medicine are nausea and constipation, so don't take more than you need. SPECIAL CARE INSTRUCTIONS: TEDs/Elastic Stockings: * The white elastic stockings help limit swelling and prevent blood clots from forming in your legs. The more you wear them, the more they work. * Wear them for six weeks after knee replacement surgery and four weeks after partial knee replacement. Prevention of Infection: * Take antibiotics one hour before any dental cleaning, dental work, urological procedure, gastrointestinal procedure or any invasive surgery in order to prevent your new joint from getting infected. * You may get the antibiotics from the doctor performing the procedure or you may call our office at before and we will call in a prescription to the pharmacy of your choice. Things to Watch For: * Drainage from the incision site that occurs more than one week after your surgery. * Severely increased knee/leg pain or swelling. * Increased redness at the incision site. * Fever above 102 degrees Fahrenheit. * Unusual chest pain or shortness of breath. * Unusual pain or burning with urination. Call [facility] at with any of the above problems or if you have any questions about your medicines or recovery. FOLLOW UP VISIT: Make an appointment to see your doctor for approximately two weeks after surgery for a progress check and staple removal by calling the office at . Current Hospital Diet Patient's current hospital diet: Diabetes Type 2 Diet Discharge Diet Recommended Diet: Diabetes Type 2 Diet Procedures Procedures Performed: Right Total Knee Arthroplasty Pending Studies Studies pending at discharge: no Laboratory Results Hemoglobin A1c Test 04/14/17 13:47 Range/Units Estimated Average Glucose 151 mg/dl Hemoglobin A1c 6.9 H 4.5-5.6 % Medical Emergencies . Who to Call and When: Medical Emergencies: If at any time you feel your situation is an emergency, please call 911 immediately. . Non-Emergent Contact Non-Emergency issues call your: Surgeon . "Provider Documentation" section prepared by Robin Montenegro. . VTE Core Measure Inpt VTE Proph given/why not?: Other Anticoagulation, TGurjit Queen, SCD's
[2017-05-06] MEDS: SENNA 8.6 MG TAB PO SCH (21:03)
[2017-05-06] MEDS: SIMVASTATIN 20 MG TAB PO SCH (21:03)
[2017-05-06 23:22] VITALS: BP 169/80; PULSE 77; TEMP 36.8; O2SAT 97
[2017-05-07] MEDS: KETOROLAC TROMETHAMINE 30 MG/ML VIAL IV. SCH (05:59)
[2017-05-07] MEDS: ACETAMINOPHEN 500 MG TAB PO SCH (05:59)
[2017-05-07 07:06] VITALS: BP 127/75; PULSE 62; TEMP 36.6; O2SAT 98
[2017-05-07] MEDS: CHECK SCOPOLAMINE PATCH PLACEMENT SCH (08:00)
[2017-05-07] MEDS: INSULIN HUMAN REGULAR SC SCH ×2 (08:00→12:00)
--- NOTE | 2017-05-07 08:13 | PROGRESS NOTE ---
DATE: 05/07/2017 SUBJECTIVE: A 61-year-old white female postop day 2 from right knee replacement. Pain seems to be doing better. No chest pain or shortness of breath. Not feeling dizzy or lightheaded. OBJECTIVE: VITAL SIGNS: Temperature 36.6. Vital signs stable. PHYSICAL EXAMINATION: Examination of the right leg reveals the dressing to be in place. Just a trace bit of bloody drainage. Leg is well aligned. Calf is soft and supple. She can dorsiflex and plantarflex her foot appropriately. ASSESSMENT: A 61-year-old white female postop day 2 from right knee replacement, doing pretty well. Pain seems to be controlled. She is neurologically intact. PLAN: 1. DVT prophylaxis including thigh-high TEDs, SCDs, and aspirin twice a day. 2. PT/OT. Weight bear as tolerated. Right total knee protocol. 3. Pain control, doing well with current pain regimen. 4. Disposition: Planning to discharge to home with some home health later today.
[2017-05-07 08:23] VITALS: BP 127/75; PULSE 62; TEMP 36.6; O2SAT 98
[2017-05-07] MEDS: AMLODIPINE BESYLATE 5 MG TAB PO SCH (08:42)
[2017-05-07] MEDS: OXYCODONE HCL IR 5 MG TAB (IMMEDIATE RELEASE) PO PRN (08:42)
[2017-05-07] MEDS: TAPENTADOL ER 50 MG TABCR PO SCH (08:42)
[2017-05-07] MEDS: LISINOPRIL 20 MG TAB PO SCH (08:42)
[2017-05-07] MEDS: FERROUS GLUCONATE 324 MG TAB PO SCH ×2 (08:42→12:30)
[2017-05-07] MEDS: ASPIRIN 81 MG ECTAB PO SCH (08:42)
[2017-05-07] MEDS: CEROVITE ADV FORMULA TAB PO SCH (08:42)
[2017-05-07] MEDS: PANTOprazole SOD 40 MG TAB PO SCH (08:42)
[2017-05-07] MEDS: DOCUSATE SODIUM 100 MG CAP PO SCH (08:42)
== END 2017-05-07 13:15 | disposition home health service (06) | DRG 470 ==
LOC: C.ACU 05:35 → C.3E 06:30 → ENRESERV 09:21
PROVIDERS: ADMIT Orthopaedic Surgery Sports Medicine; ATTEND Orthopaedic Surgery Sports Medicine
PROC: 0SRC0J9 Replacement of Right Knee Joint with Synthetic Substitute, Cemented, Open Approach (ICD-10-PCS; principal; 2017-05-05 07:30)
DX: M17.11 Unilateral primary osteoarthritis, right knee (principal); I10 Essential (primary) hypertension; E78.00 Pure hypercholesterolemia, unspecified; F41.9 Anxiety disorder, unspecified; E11.9 Type 2 diabetes mellitus without complications; Z82.49 Family history of ischemic heart disease and other diseases of the circulatory system; Z83.3 Family history of diabetes mellitus; L29.2 Pruritus vulvae

== ENCOUNTER → 2017-07-26 | Outpatient (CLI) | payer BC ==
[~2017-07-26] MED LIST changes: +ACET-24 PO; +ASPI-320 PO; -GLUCTAB7 PO; +RXC5 PO
--- NOTE | 2017-07-28 07:48 | MAMMOGRAPHY REPORT ---
BILATERAL DIGITAL SCREENING MAMMOGRAM TOMOSYNTHESIS WITH CAD: 07/26/2017 CLINICAL HISTORY: Routine screening. Patient has no complaints. TECHNIQUE: Breast tomosynthesis in addition to standard 2D mammography was performed. Current study was also evaluated with a Computer Aided Detection (CAD) system. COMPARISON: Comparison is made to exams dated: 12/17/2014 mammogram, 12/14/2012 mammogram, 11/02/2011 m ammogram, 05/27/2010 mammogram - [facility], 04/15/2008, and 05/11/2006. BREAST COMPOSITION: There are scattered areas of fibroglandular density in both breasts. FINDINGS: No suspicious masses, calcifications, or areas of architectural distortion are noted in ei ther breast. There has been no significant interval change compared to prior exams. Bilateral benign -appearing calcifications are not significantly changed. A linear scar marker denotes a scar on the right upper outer breast. IMPRESSION: ACR BI-RADS CATEGORY 2: BENIGN There is no mammographic evidence of malignancy. A 1 year screening mammogram is recommended. The pa tient will receive written notification of the results. Approximately 10% of breast cancers are not detected with mammography. A negative mammographic report should not delay biopsy if a clinically suggestive mass is present. Ghazal Lainez M.D. ah/:07/27/2017 07:35:22 [facility] Manager: Jane OLIVER)(M), [facility] letter sent: Normal 1/2 BI-RADS Code: ACR BI-RADS Category 2: Benign
== END | disposition home or self-care (01) ==
LOC: C.MAMM 17:24
PROVIDERS: ATTEND Family Medicine
DX: Z12.31 Encounter for screening mammogram for malignant neoplasm of breast (principal)

== ENCOUNTER 2023-08-25 06:51 | Observation (INO) ==
--- NOTE | 2023-08-25 07:26 | Emergency Department Note ---
Impression & Plan Cerebrovascular accident ED Provider Note Provider: Chon Patricia MD DATE OF SERVICE: 08/25/2023 CHIEF COMPLAINT: Referred from MRI HISTORY OF PRESENT ILLNESS: Patient is a 67-year-old female history of hypertension, diabetes and recently found breast mass undergoing evaluation presenting today referred from MRI. Patient reported approximately 6 days ago she developed some right-sided numbness to the face and tongue without vision problems or difficulty swallowing. No headache or pain. As stated that she had some palpitations here and there but no chest pain or syncope. Does report that she had a little bit of numbness to the right lateral leg. Has been trying to do some exercises of the leg at home but seems to be moving okay. Had an outpatient evaluation and outpatient workup was ordered. MRI completed this morning and positive for a left thumb acute stroke. Patient is normally on a baby aspirin every day. Denies any acute worsening or pain at this time. No history of CVA or cardiac disease beyond murmur reported. Did note her blood pressure has been a bit high. PAST MEDICAL HISTORY: As noted above MEDICATIONS: Reviewed home medications includes 81 mg aspirin SOCIAL HISTORY: Non-smoker, works at [id number] PHYSICAL EXAM: GENERAL: alert and oriented in no acute distress on stretcher Head: normocephalic and atraumatic EYES: No injection, discharge or icterus. PERRL, EOMI. NECK: Trachea midline. ENT: Mucous membranes pink and moist. LUNGS: Airway patent. No retractions or tachypnea HEART: Regular rate and rhythm. No chest wall tenderness ABDOMEN: Soft and non-tender, without guarding or rebound. SKIN: Acyanotic, warm, dry, without rashes EXTREMITIES: Without swelling, tenderness or deformity NEUROLOGICAL: No aphasia. No facial droop or slurred speech. Tongue midline. Does report some decrease sensation on the right side of her tongue. Normal strength and tone in the extremities. Sensation to gross touch normal in extremities by her report. No significant finger-nose ataxia on exam. Ambulatory. EK bpm normal sinus rhythm without PVC. No acute ST segment elevation with a QTc of 420. CONTINUOUS CARDIAC MONITORING: was ordered and showed a heart rate of 60s bpm in normal sinus rhythm Patient's laboratory studies and imaging reviewed. Differential includes Infection, dehydration, metabolic abnormality, hypo/hyperglycemia, electrolyte disturbance, anemia, hypoxia, cardiac sources, intracerebral event, toxicologic, neurologic, as well as other pathologies. IMPRESSION/MEDICAL DECISION MAKING: Discussed with the patient and family MRI results and the need for full stroke workup given the findings of stroke. She is outside the window of symptoms started 6 days ago. Does not appear to be hemiplegic or suffering from LVO but will obtain angiograms to look for vascular abnormalities of the large vessels. Will give a dose of aspirin here. Basic blood work EKG obtained. Does not appear to be in A-fib upon arrival here but does report again some palpitations here there. CT and CT angiograms per radiology without acute findings or vascular abnormality. Blood counts without severe anemia or leukocytosis. No significant electrolyte abnormality noted. Discussed with the patient and family and recommend we bring her in for stroke evaluation and optimization (secondary prevention). Hospitalist team will be contacted. Will start dual antiplatelet with Plavix po here. DIAGNOSIS: CVA DISPOSITION: Hospitalist will evaluate Patient was agreeable with this plan. Past Med/Surg History Problem List (Updated 08/25/23 @ 11:54 by Estefani Beltran PA-C) Cerebrovascular accident (Acute) Systolic murmur Palpitations TIA (transient ischemic attack) Abnormal magnetic resonance imaging of right breast Abnormal finding on imaging Left upper quadrant abdominal pain Hepatitis B Anxiety Nocturnal leg cramps Hepatitis B carrier Renal hematoma, left Arthritis of knee, left Diabetes mellitus (Chronic) Hyperlipidemia (Acute) Hypertension (Acute) Medical History (Updated 08/25/23 @ 11:54 by Estefani Beltran PA-C) Right knee DJD Surgical History (Updated 08/16/23 @ 10:15 by Shalini Chowdary RN) Hx of breast surgery Right breast lumpectomy H/O colonoscopy (2006) had cologuard 06/2023 History of cataract surgery History of right knee joint replacement H/O laparoscopy Hx laparoscopic cholecystectomy History of section times 2 History of appendectomy Family History (Updated 08/16/23 @ 10:16 by Shalini Chowdary RN) Grandfather No problems noted. Father Diabetes Hypertension Mother Diabetes Hypertension Denies family history of Ovarian cancer Breast cancer Colorectal cancer Social History (Updated 08/16/23 @ 10:17 by Shalini Chowdary RN) Smoking Status: Never smoker Do You Dip or Chew Tobacco: No; Hx Alcohol Use: No Hx Substance Use: No Preferred Language: [place] Communication Ability: Effective Court Collections Officer Required: No Beliefs That Will Affect Care: None marital status: Current Living Situation: Spouse current occupational status: employed current occupation: [employer] How many Children do You have: 2 Feels Safe at Home: Yes Safety Concerns: Feels Safe At This Time Diet: diabetic during the past year weight has: remained stable Allergies Allergies Allergy/AdvReac Type Severity Reaction Status Date / Time amoxicillin Allergy Intermediate rash Verified 08/22/23 13:33 dapagliflozin [From [facility]] AdvReac Mild Rash Verified 08/22/23 13:33 Home Meds Home Medications Medication Instructions Recorded Confirmed lorazepam 0.5 mg tablet 0.5 mg PO DAILY PRN anxiety 06/12/19 08/25/23 multivitamin (Daily Multiple 1 tab PO DAILY 06/12/19 08/25/23 tablet) cinnamon bark 1 cap PO UD 04/20/22 08/25/23 turmeric 1 cap PO UD 04/20/22 08/25/23 quinidine sulfate 200 mg tablet 100 mg PO DAILY PRN Other 04/21/23 08/25/23 tenofovir disoproxil fumarate 300 300 mg PO DAILY 04/21/23 08/25/23 mg tablet vitamin K2 100 mcg capsule 100 mcg PO DAILY 07/17/23 08/25/23 cyanocobalamin (vitamin B-12) 50 50 mcg PO DAILY 08/16/23 08/25/23 mcg tablet (Vitamin B-12) magnesium 200 mg tablet 200 mg PO DAILY 08/16/23 08/25/23 Previous Rx's Medication Instructions Recorded aspirin 81 mg tablet,delayed 81 mg PO DAILY #90 tabs 10/31/22 release (Barney Low Dose Aspirin) atorvastatin 20 mg tablet 20 mg PO DAILY #90 tabs 03/27/23 amlodipine 5 mg tablet 5 mg PO BID #180 tabs 04/21/23 lisinopril 20 mg tablet 20 mg PO DAILY #90 tabs 04/21/23 metformin 500 mg tablet 1,000 mg (2 x 500 mg) PO BID #360 04/21/23 tabs meloxicam 15 mg tablet 15 mg PO DAILY #90 tabs 06/22/23 tramadol 50 mg tablet 50 mg PO TID PRN pain #30 tabs 07/17/23 semaglutide 14 mg tablet 14 mg PO DAILY #90 tabs 08/22/23 Results & Data (ED) Vital Signs Vital Signs - 24 hr 08/25/23 06:52 08/25/23 06:55 08/25/23 07:12 Temperature 36.0 C L Temperature Source Temporal Artery Scan Pulse Rate 69 70 Pulse Rate from SpO2 Sensor Respiratory Rate 20 Blood Pressure 193/96 H Blood Pressure Mean 128 Pulse Oximetry 97 98 Oxygen Delivery Method Room Air Room Air Sepsis Recent Fever Within 48 Hours No Sepsis New/Unexplained Change in Mental Status N/A Sepsis Action Taken by Nursing No Action Required 08/25/23 08:45 Temperature Temperature Source Pulse Rate 72 Pulse Rate from SpO2 Sensor 72 Respiratory Rate 16 Blood Pressure 161/91 H Blood Pressure Mean 114 Pulse Oximetry 97 Oxygen Delivery Method Sepsis Recent Fever Within 48 Hours Sepsis New/Unexplained Change in Mental Status Sepsis Action Taken by Nursing Laboratory Data 08/25/23 07:16 08/25/23 07:16 Lab Results 08/25/23 08/25/23 Range/Units 07:16 08:10 WBC 8.43 (4.8-10.8) K/ul RBC 5.55 H (4.20-5.40) M/uL Hgb 16.6 H (12.0-16.0) g/dl Hct 48.3 H (37.0-47.0) % MCV 87.0 (80.0-100.0) fL MCH 29.9 (25.0-34.0) pg MCHC 34.4 (32.0-36.0) g/dL RDW Std Deviation 38.7 (36.4-46.3) fL RDW Coeff of Scottie 12.2 (11.5-14.5) % Plt Count 257 (130-400) K/uL MPV 12.0 (9.4-12.4) fL Immature Gran % (Auto) 0.4 % Neut % (Auto) 57.6 % Lymph % (Auto) 28.9 % [place] % (Auto) 6.5 % Eos % (Auto) 5.5 % Baso % (Auto) 1.1 % Neut # (Auto) 4.86 (1.40-6.50) K/uL Lymph # (Auto) 2.44 (1.20-3.40) K/uL [place]ancock # (Auto) 0.55 (0.11-0.59) K/uL Eos # (Auto) 0.46 (0.00-0.50) K/uL Baso # (Auto) 0.09 (0.00-0.20) K/uL Immature Gran # (Auto) 0.03 (0.01-0.20) K/uL Platelet Estimate Normal (Normal) PT Cancelled INR Cancelled APTT Cancelled PTT Ratio Cancelled Sodium 140 (136-145) mmol/L Potassium 4.4 (3.5-5.1) mmol/L Chloride 104 (98-107) mmol/L Carbon Dioxide 28 (21-32) mmol/L Anion Gap 8 (3-11) BUN 11 (6-23) mg/dl Creatinine 0.75 (0.6-1.2) mg/dl Est Cr Clr Drug Dosing 66.2 ml/min Est GFR ( Amer) 95.6 ml/min Est GFR (Non-Af Amer) 82.5 ml/min BUN/Creatinine Ratio 14.7 (10-20) Glucose 151 H (70-99(Fasting)) mg/dl Calcium 10.5 H (8.6-10.3) mg/dl Magnesium 2.3 (1.7-2.4) mg/dl Total Bilirubin 0.6 (0.2-1.0) mg/dl AST 25 (13-39) U/L ALT 40 (7-52) U/L Alkaline Phosphatase 114 H (34-104) U/L Troponin I High Sens 5.1 (0-14) pg/ml Total Protein 7.9 (6.0-8.3) gm/dl Albumin 4.7 (3.4-5.0) gm/dl Globulin 3.2 (2.5-4.0) gm/dl Albumin/Globulin Ratio 1.5 (0.9-2) Urine Color Yellow Urine Appearance Clear (Clear) Urine pH 7.5 (4.5-7.5) Ur Specific [place] 1.023 (1.000-1.030) Urine Protein Negative (Negative) Urine Glucose (UA) Negative (Negative) Urine Ketones Negative (Negative) Urine Blood Negative (Negative) Urine Nitrite Negative (Negative) Urine Bilirubin Negative (Negative) Urine Urobilinogen Negative (Negative) Ur Leukocyte Esterase Negative (Negative) Administered Medications Amlodipine Besylate (Amlodipine Besylate 5 Mg Tab) 5 mg PO BID [facility] Stop: 09/24/23 10:13 Last Admin: 08/25/23 11:18 Dose: Not Given Documented By: QUINCY Atorvastatin Calcium (Atorvastatin 40 Mg Tab) [facility]: 09/24/23 10:13 Last Admin: 08/25/23 11:52 Dose: 80 mg Documented By: QUINCY Cyanocobalamin (Cyanocobalamin (B-12) 100 Mcg Tablet) 50 mcg PO DAILY [facility] Stop: 09/24/23 10:44 Last Admin: 08/25/23 11:52 Dose: 50 mcg Documented By: QUINCY Enoxaparin Sodium (Enoxaparin Inj 40 Mg/0.4 Ml Syr) 40 mg SQ [facility] Stop: 09/24/23 10:44 Last Admin: 08/25/23 11:51 Dose: 40 mg Documented By: QUINCY Multivitamins (Multivitamin Tab) 1 tab PO [facility] Stop: 09/24/23 10:44 Last Admin: 08/25/23 11:56 Dose: Not Given Documented By: QUINCY Discontinued Medications Aspirin (Aspirin Chew 324 Mg) 324 mg PO NOW STA Stop: 08/25/23 07:25 Last Admin: 08/25/23 08:44 Dose: 324 mg Documented By: ARPAN Aspirin (Aspirin 81 Mg Ectab) 81 mg PO DAILY [facility] Stop: 09/24/23 10:13 Last Admin: 08/25/23 10:46 Dose: Not Given Documented By: QUINCY Clopidogrel Bisulfate (Clopidogrel Bisulfate 75 Mg Tab) 75 mg PO NOW ONE Stop: 08/25/23 08:56 Last Admin: 08/25/23 09:16 Dose: 75 mg Documented By: ARPAN Clopidogrel Bisulfate (Clopidogrel Bisulfate 300 Mg Tab) 300 mg PO NOW ONE Stop: 08/25/23 10:15 Last Admin: 08/25/23 11:19 Dose: Not Given Documented By: QUINCY Clopidogrel Bisulfate (Clopidogrel Bisulfate 75 Mg Tab) 225 mg PO NOW ONE Stop: 08/25/23 11:01 Last Admin: 08/25/23 11:51 Dose: 225 mg Documented By: QUINCY Ioversol (Optiray 320 125ml) 112 ml IV ONCE ONE Stop: 08/25/23 07:38 Last Admin: 08/25/23 07:38 Dose: 112 ml Documented By: JOSEPH Lisinopril (Lisinopril 20 Mg Tab) 20 mg PO DAILY [facility] Stop: 09/24/23 10:13 Last Admin: 08/25/23 11:19 Dose: Not Given Documented By: CM Imaging Data Radiologist's Impression: Head CT 08/25/23 07:[address] OF THE BRAIN; CT ANGIOGRAM OF THE BRAIN; CT ANGIOGRAM OF THE NECK CLINICAL HISTORY: Neurological deficit. Stroke like symptoms. COMPARISON STUDY: CT of the brain dated 02/04/2019 TECHNIQUE: Unenhanced axial CT scan of the brain is performed. Subsequently, following the IV administration of 112 of Optiray 320, CT angiogram of the head and neck was performed from the aortic arch to the vertex. Images are reviewed in the axial, sagittal, and coronal planes. 3-D MIPS images are created and assessed. IV contrast was administered without complication. All measurements were calculated based on NASCET criteria. A dose lowering technique was utilized adhering to the principles of ALARA. CT DOSE: 1135.84 mGy.cm FINDINGS: Brain parenchyma: There is age-related involutional change noting moderate subcortical and periventricular microangiopathic disease. There is a chronic lacunar infarct centered in the left internal capsule. There is no hemorrhage, mass effect, or evidence of acute territorial ischemia by CT criteria. There is no evidence of enhancing mass lesion on the angiogram phase images. The ventricles, sulci, and cisterns are prominent secondary to involutional change. Perez-white matter differentiation is preserved. No extra-axial fluid collection is seen. Thoracic aorta: Visualized portions of the thoracic aorta are normal in caliber. The aortic arch demonstrates standard 3-vessel anatomy. Right carotid arterial system: The right common carotid artery is widely patent, as are the right internal and external carotid arteries. There is mild calcified plaque in the proximal right ICA. Left carotid arterial system: The left common carotid artery is widely patent, as are the left internal and external carotid arteries. Mild calcified plaque is seen in the carotid bulb. Vertebral arteries: Widely patent bilaterally and codominant. Subclavian arteries: Widely patent bilaterally. Intracranial vasculature: There is atherosclerotic calcification of the cavernous carotid and vertebral arteries. The internal carotid arteries are patent at the skull base, as are the anterior and middle cerebral arteries bilaterally. The vertebrobasilar system and posterior cerebral arteries are widely patent. The vertebral arteries are codominant. There is no aneurysm, high-grade stenosis, or focal vessel cut off seen throughout the intracranial circulation. Jugular veins: Patent bilaterally. Dural sinuses: Patent. Lung apices: Partially visualized upper lobe lung parenchyma appears clear. Soft tissues: The visualized pharyngeal soft tissues are normal in appearance noting angiographic phase technique. The oropharyngeal airway appears widely patent. The salivary and thyroid glands are normal in appearance. No cervical lymphadenopathy is seen. Skeletal structures: The skeletal structures are osteopenic. The calvarium appears intact. The cervical spine is maintained noting multilevel spondylosis. Orbits: The bony orbits are intact. Orbital contents are normal as visualized noting a left ocular lens implants. Sinuses and mastoids: The paranasal sinuses are clear. The mastoid air cells are well pneumatized. IMPRESSION: 1. There is no hemorrhage, mass effect, or evidence of acute territorial ischemia by CT criteria. 2. Unremarkable CT angiogram of the brain. 3. Unremarkable CT angiogram of the neck. ACT 112: Negative or not required by law. Electronically signed by: Carlos Osborn M.D. 08/25/2023 8:06 AM Head CTA 08/25/23 07:[address] OF THE BRAIN; CT ANGIOGRAM OF THE BRAIN; CT ANGIOGRAM OF THE NECK CLINICAL HISTORY: Neurological deficit. Stroke like symptoms. COMPARISON STUDY: CT of the brain dated 02/04/2019 TECHNIQUE: Unenhanced axial CT scan of the brain is performed. Subsequently, following the IV administration of 112 of Optiray 320, CT angiogram of the head and neck was performed from the aortic arch to the vertex. Images are reviewed in the axial, sagittal, and coronal planes. 3-D MIPS images are created and assessed. IV contrast was administered without complication. All measurements were calculated based on NASCET criteria. A dose lowering technique was utilized adhering to the principles of ALARA. CT DOSE: 1135.84 mGy.cm FINDINGS: Brain parenchyma: There is age-related involutional change noting moderate subcortical and periventricular microangiopathic disease. There is a chronic lacunar infarct centered in the left internal capsule. There is no hemorrhage, mass effect, or evidence of acute territorial ischemia by CT criteria. There is no evidence of enhancing mass lesion on the angiogram phase images. The ventricles, sulci, and cisterns are prominent secondary to involutional change. Perez-white matter differentiation is preserved. No extra-axial fluid collection is seen. Thoracic aorta: Visualized portions of the thoracic aorta are normal in caliber. The aortic arch demonstrates standard 3-vessel anatomy. Right carotid arterial system: The right common carotid artery is widely patent, as are the right internal and external carotid arteries. There is mild calcified plaque in the proximal right ICA. Left carotid arterial system: The left common carotid artery is widely patent, as are the left internal and external carotid arteries. Mild calcified plaque is seen in the carotid bulb. Vertebral arteries: Widely patent bilaterally and codominant. Subclavian arteries: Widely patent bilaterally. Intracranial vasculature: There is atherosclerotic calcification of the cavernous carotid and vertebral arteries. The internal carotid arteries are patent at the skull base, as are the anterior and middle cerebral arteries bilaterally. The vertebrobasilar system and posterior cerebral arteries are widely patent. The vertebral arteries are codominant. There is no aneurysm, high-grade stenosis, or focal vessel cut off seen throughout the intracranial circulation. Jugular veins: Patent bilaterally. Dural sinuses: Patent. Lung apices: Partially visualized upper lobe lung parenchyma appears clear. Soft tissues: The visualized pharyngeal soft tissues are normal in appearance noting angiographic phase technique. The oropharyngeal airway appears widely patent. The salivary and thyroid glands are normal in appearance. No cervical lymphadenopathy is seen. Skeletal structures: The skeletal structures are osteopenic. The calvarium appears intact. The cervical spine is maintained noting multilevel spondylosis. Orbits: The bony orbits are intact. Orbital contents are normal as visualized noting a left ocular lens implants. Sinuses and mastoids: The paranasal sinuses are clear. The mastoid air cells are well pneumatized. IMPRESSION: 1. There is no hemorrhage, mass effect, or evidence of acute territorial ischemia by CT criteria. 2. Unremarkable CT angiogram of the brain. 3. Unremarkable CT angiogram of the neck. ACT 112: Negative or not required by law. Electronically signed by: Carlos Osborn M.D. 08/25/2023 8:06 AM Neck CTA 08/25/23 07:[address] OF THE BRAIN; CT ANGIOGRAM OF THE BRAIN; CT ANGIOGRAM OF THE NECK CLINICAL HISTORY: Neurological deficit. Stroke like symptoms. COMPARISON STUDY: CT of the brain dated 02/04/2019 TECHNIQUE: Unenhanced axial CT scan of the brain is performed. Subsequently, following the IV administration of 112 of Optiray 320, CT angiogram of the head and neck was performed from the aortic arch to the vertex. Images are reviewed in the axial, sagittal, and coronal planes. 3-D MIPS images are created and assessed. IV contrast was administered without complication. All measurements were calculated based on NASCET criteria. A dose lowering technique was utilized adhering to the principles of ALARA. CT DOSE: 1135.84 mGy.cm FINDINGS: Brain parenchyma: There is age-related involutional change noting moderate subcortical and periventricular microangiopathic disease. There is a chronic lacunar infarct centered in the left internal capsule. There is no hemorrhage, mass effect, or evidence of acute territorial ischemia by CT criteria. There is no evidence of enhancing mass lesion on the angiogram phase images. The ventricles, sulci, and cisterns are prominent secondary to involutional change. Perez-white matter differentiation is preserved. No extra-axial fluid collection is seen. Thoracic aorta: Visualized portions of the thoracic aorta are normal in caliber. The aortic arch demonstrates standard 3-vessel anatomy. Right carotid arterial system: The right common carotid artery is widely patent, as are the right internal and external carotid arteries. There is mild calcified plaque in the proximal right ICA. Left carotid arterial system: The left common carotid artery is widely patent, as are the left internal and external carotid arteries. Mild calcified plaque is seen in the carotid bulb. Vertebral arteries: Widely patent bilaterally and codominant. Subclavian arteries: Widely patent bilaterally. Intracranial vasculature: There is atherosclerotic calcification of the cavernous carotid and vertebral arteries. The internal carotid arteries are patent at the skull base, as are the anterior and middle cerebral arteries bilaterally. The vertebrobasilar system and posterior cerebral arteries are widely patent. The vertebral arteries are codominant. There is no aneurysm, high-grade stenosis, or focal vessel cut off seen throughout the intracranial circulation. Jugular veins: Patent bilaterally. Dural sinuses: Patent. Lung apices: Partially visualized upper lobe lung parenchyma appears clear. Soft tissues: The visualized pharyngeal soft tissues are normal in appearance noting angiographic phase technique. The oropharyngeal airway appears widely patent. The salivary and thyroid glands are normal in appearance. No cervical lymphadenopathy is seen. Skeletal structures: The skeletal structures are osteopenic. The calvarium appears intact. The cervical spine is maintained noting multilevel spondylosis. Orbits: The bony orbits are intact. Orbital contents are normal as visualized noting a left ocular lens implants. Sinuses and mastoids: The paranasal sinuses are clear. The mastoid air cells are well pneumatized. IMPRESSION: 1. There is no hemorrhage, mass effect, or evidence of acute territorial ischemia by CT criteria. 2. Unremarkable CT angiogram of the brain. 3. Unremarkable CT angiogram of the neck. ACT 112: Negative or not required by law. Electronically signed by: Carlos Osborn M.D. 08/25/2023 8:06 AM Discharge Plan Visit Data Chief Complaint: Neuro Symptoms/Deficit Stated Complaint: RIGHT SIDE WEAKNESS,CAME FROM MRI ED Provider: Chon Patricia Discharge Problem: Cerebrovascular accident Patient Disposition: Admitted As Inpatient Discharge Instructions Interventions: ED Discharge Assessment Last Done: 08/25/23 09:48 Discharge Problem: Cerebrovascular accident Qualifiers: CVA mechanism: unspecified Qualified Code(s): I63.9 - Cerebral infarction, unspecified
[2023-08-25] MEDS: OPTIRAY 320 125ml IV ONE (07:38)
[2023-08-25 07:54] LABS: Albumin Globulin Ratio 1.5 (0.9-2); Albumin Level 4.7 gm/dl (3.4-5.0); BUN Creatinine Ratio 14.7 (10-20); Bilirubin,Total 0.6 mg/dl (0.2-1.0); Calcium 10.5 mg/dl (8.6-10.3); Creatinine Clr Calc Pharmacy 66.2 ml/min; Est GFR (African American) 95.6 ml/min; Est GFR (Non-African American) 82.5 ml/min; Globulin 3.2 gm/dl (2.5-4.0); Magnesium 2.3 mg/dl (1.7-2.4); Potassium 4.4 mmol/L (3.5-5.1); Total Protein 7.9 gm/dl (6.0-8.3)
[2023-08-25 08:00] LABS: Troponin I High Sensitivity 5.1 pg/ml (0-14)
--- NOTE | 2023-08-25 08:08 | CT Scan Report ---
UNENHANCED CT OF THE BRAIN; CT ANGIOGRAM OF THE BRAIN; CT ANGIOGRAM OF THE NECK CLINICAL HISTORY: Neurological deficit. Stroke like symptoms. COMPARISON STUDY: CT of the brain dated 02/04/2019 TECHNIQUE: Unenhanced axial CT scan of the brain is performed. Subsequently, following the IV adminis tration of 112 of [employer] 320, CT angiogram of the head and neck was performed from the aortic arch t o the vertex. Images are reviewed in the axial, sagittal, and coronal planes. 3-D MIPS images are cre ated and assessed. IV contrast was administered without complication. All measurements were calculate d based on NASCET criteria. A dose lowering technique was utilized adhering to the principles of ALA RA. CT DOSE: 1135.84 mGy.cm FINDINGS: Brain parenchyma: There is age-related involutional change noting moderate subcortical and periventri cular microangiopathic disease. There is a chronic lacunar infarct centered in the left internal caps ule. There is no hemorrhage, mass effect, or evidence of acute territorial ischemia by CT criteria. T here is no evidence of enhancing mass lesion on the angiogram phase images. The ventricles, sulci, an d cisterns are prominent secondary to involutional change. Perez-white matter differentiation is prese rved. No extra-axial fluid collection is seen. Thoracic aorta: Visualized portions of the thoracic aorta are normal in caliber. The aortic arch demo nstrates standard 3-vessel anatomy. Right carotid arterial system: The right common carotid artery is widely patent, as are the right int ernal and external carotid arteries. There is mild calcified plaque in the proximal right ICA. Left carotid arterial system: The left common carotid artery is widely patent, as are the left [employer] al and external carotid arteries. Mild calcified plaque is seen in the carotid bulb. Vertebral arteries: Widely patent bilaterally and codominant. Subclavian arteries: Widely patent bilaterally. Intracranial vasculature: There is atherosclerotic calcification of the cavernous carotid and vertebr al arteries. The internal carotid arteries are patent at the skull base, as are the anterior and midd le cerebral arteries bilaterally. The vertebrobasilar system and posterior cerebral arteries are wide ly patent. The vertebral arteries are codominant. There is no aneurysm, high-grade stenosis, or focal vessel cut off seen throughout the intracranial circulation. Jugular veins: Patent bilaterally. Dural sinuses: Patent. Lung apices: Partially visualized upper lobe lung parenchyma appears clear. Soft tissues: The visualized pharyngeal soft tissues are normal in appearance noting angiographic pha se technique. The oropharyngeal airway appears widely patent. The salivary and thyroid glands are nor mal in appearance. No cervical lymphadenopathy is seen. Skeletal structures: The skeletal structures are osteopenic. The calvarium appears intact. The cervic al spine is maintained noting multilevel spondylosis. Orbits: The bony orbits are intact. Orbital contents are normal as visualized noting a left ocular le ns implants. Sinuses and mastoids: The paranasal sinuses are clear. The mastoid air cells are well pneumatized. IMPRESSION: 1. There is no hemorrhage, mass effect, or evidence of acute territorial ischemia by CT criteria. 2. Unremarkable CT angiogram of the brain. 3. Unremarkable CT angiogram of the neck. ACT 112: Negative or not required by law. Electronically signed by: Carlos Osborn M.D. 08/25/2023 8:06 AM
[2023-08-25 08:20] LABS: Hematocrit (blood only) 48.3 % (37.0-47.0); Hemoglobin 16.6 g/dl (12.0-16.0); Mean Corpuscular Hemoglobin 29.9 pg (25.0-34.0); Mean Corpuscular Hgb Conc 34.4 g/dL (32.0-36.0); Platelet Count 257 K/uL (130-400); RDW Coefficient of Variation 12.2 % (11.5-14.5); RDW Standard Deviation 38.7 fL (36.4-46.3); Red Blood Count 5.55 M/uL (4.20-5.40); White Blood Count 8.43 K/ul (4.8-10.8)
[2023-08-25 08:21] LABS: Basophils # (auto) 0.09 K/uL (0.00-0.20); Basophils % (auto) 1.1 %; Eosinophils # (auto) 0.46 K/uL (0.00-0.50); Eosinophils % (auto) 5.5 %; Immature Granulocytes # (auto) 0.03 K/uL (0.01-0.20); Immature Granulocytes % (auto) 0.4 %; Lymphocytes # (auto) 2.44 K/uL (1.20-3.40); Lymphocytes % (auto) 28.9 %; Monocytes # (auto) 0.55 K/uL (0.11-0.59); Monocytes % (auto) 6.5 %; Neutrophils # (auto) 4.86 K/uL (1.40-6.50); Neutrophils % (auto) 57.6 %; Platelet Estimate Normal (Normal)
[2023-08-25] MEDS: ASPIRIN CHEW 324 MG PO STA (08:44)
[2023-08-25 09:04] LABS: Appearance Urine Clear (Clear); Bilirubin Urine Negative (Negative); Blood Urine Negative (Negative); Color Urine Yellow; Glucose Urine UA Negative (Negative); Ketones Urine Negative (Negative); Leukocyte Esterase Urine Negative (Negative); Nitrite Urine Negative (Negative); Protein Urine Negative (Negative); Specific Gravity Urine 1.023 (1.000-1.030); Urobilinogen Urine Negative (Negative); pH Urine 7.5 (4.5-7.5)
[2023-08-25] MEDS: CLOPIDOGREL BISULFATE 75 MG TAB PO ONE ×2 (09:16→11:51)
[2023-08-25] MEDS ORDERED: quiNIDine sulfate 200 MG TAB PO PRN (10:14)
[2023-08-25] MEDS ORDERED: ONDANSETRON INJ 2 MG/ML 2 ML VIAL IV PRN (10:14)
[2023-08-25] MEDS ORDERED: PHARMACIST DISCHARGE MED REC CONSULT PRN (10:14)
[2023-08-25] MEDS ORDERED: ACETAMINOPHEN 325 MG TAB PO PRN (10:14)
[2023-08-25] MEDS ORDERED: POLYETHYLENE (MIRALAX) 17 GM PACK PO PRN (10:14)
[2023-08-25] MEDS ORDERED: NON-FORMULARY MEDICATION (Magnesium 200 mg tablet) PO SCH (10:14)
[2023-08-25] MEDS ORDERED: ALUMINUM/MAGNESIUM SUSP 30 ML UDC PO PRN (10:14)
[2023-08-25] MEDS ORDERED: traMADol HCL 50 MG TABLET PO PRN (10:14)
[2023-08-25] MEDS ORDERED: LORazepam 0.5 MG TAB PO PRN (10:14)
[2023-08-25] MEDS: ASPIRIN 81 MG ECTAB PO SCH (10:46)
[2023-08-25] MEDS ORDERED: Nursing to Pharmacy Communication SCH (11:00)
[2023-08-25] MEDS: amLODIPine BESYLATE 5 MG TAB PO SCH (11:18)
[2023-08-25] MEDS: lisinopril 20 MG TAB PO SCH (11:19)
[2023-08-25] MEDS: CLOPIDOGREL BISULFATE 300 MG TAB PO ONE (11:19)
[2023-08-25] MEDS: ENOXAPARIN INJ 40 MG/0.4 ML SYR SQ SCH (11:51)
[2023-08-25] MEDS: CYANOCOBALAMIN (B-12) 100 MCG TABLET PO SCH (11:52)
[2023-08-25] MEDS: ATORVASTATIN 40 MG TAB PO SCH (11:52)
[2023-08-25] MEDS: MULTIVITAMIN TAB PO SCH (11:56)
--- NOTE | 2023-08-25 12:04 | History & Physical Report ---
Date of Service August 25, 2023 Assessment & Plan (1) Cerebrovascular accident: Plan: Acute/unstable - Brain MRI with 8mm acute lacunar infarct of the left thalamus - Start Plavix and continue Aspirin for DAPT x 3 weeks, then can de-escalate to monotherapy - Transthoracic echocardiogram ordered - Increase Atorvastatin to 80mg q day (increase from 20mg daily) - Will require tighter blood sugar control to reduce further risk of future events - Outpatient PCP follow up (2) Hypertension: Plan: Chronic/stable - Continue Lisinopril and Amlodipine - Would benefit from tighter BP control, increase Lisinopril to 30mg daily (current home dose=20mg) (3) Hyperlipidemia: Plan: Chronic/stable - Continue Atorvastatin with increase to 80mg daily in light of acute CVA (4) Diabetes mellitus: Plan: Chronic with intermediate control - Most recent hemoglobin a1c was 8.5% - Currently on a regimen of Semaglutide 14mg daily (orally) and Metformin 1000mg BID - Would consider trial of GLP1 subcutaneously such as Trulicity or Ozempic weekly for improved BSG control (5) Anxiety: Plan: Chronic/stable - Continue Lorazepam 0.5mg daily prn Plan Above plan of care has been d/w Dr. Yuan who will also see and evaluate this patient. Further orders as warranted. Possible discharge later this afternoon pending echocardiogram. The amount of time spent on this encouter total 77 minutes including face to face, thorough review of prior records, reviewing labs, writing orders and documentation in ehr. Admission and Anticipated Discharge Date Admission Date: August 25, 2023 History of Present Illness Chief Complaint: Abnormal MRI Primary Care Provider: Colton Paul MD Duyen Roque is a 67 yo F with a pmhx of HTN, HLD, DMT2, anxiety and recent abnormal mammogram s/p right breast lumpectomy who presents to the ER from radiology due to abnormal brain MRI. 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 She also noted some tingling/burning sensation on the right side of her face. Her symptoms were more noticeable on Monday and she contacted her PCP right away. She was ordered an MRI which was performed this morning as an outpatient with findings of an 8 mm acute lacunar infarct of the left thalamus. Her right arm and leg weakness has nearly resolved but she still has some abnormal sensation on the right side of her face. She denies chest pain, dyspnea, numbness or tingling in her arm, hands, legs or feet. She denies focal weakness including loss of regional coordinator strength and denies garbled or slurred speech. She chronically takes Atorvastatin 20mg daily and Aspirin 81mg daily (which she has taken for the past year). She denies chest pain, dyspnea, n/v/d, f/c, headache, difficulty swallowing, or gu symptoms. ER w/u included CTA head/neck which was unremarkable. She was given a dose of Plavix by the ER physician and referred for admission for acute stroke. Allergies Allergy/AdvReac Type Severity Reaction Status Date / Time amoxicillin Allergy Intermediate rash Verified 08/22/23 13:33 dapagliflozin [From [facility]] AdvReac Mild Rash Verified 08/22/23 13:33 Home Medications Medication Instructions Recorded Confirmed Type lorazepam 0.5 mg tablet 0.5 mg PO DAILY PRN anxiety 06/12/19 08/25/23 History multivitamin (Daily Multiple 1 tab PO DAILY 06/12/19 08/25/23 History tablet) cinnamon bark 1 cap PO UD 04/20/22 08/25/23 History turmeric 1 cap PO UD 04/20/22 08/25/23 History aspirin 81 mg tablet,delayed 81 mg PO DAILY #90 tabs 10/31/22 08/25/23 Rx release (Barney Low Dose Aspirin) amlodipine 5 mg tablet 5 mg PO BID #180 tabs 04/21/23 08/25/23 Rx metformin 500 mg tablet 1,000 mg (2 x 500 mg) PO BID #360 04/21/23 08/25/23 Rx tabs quinidine sulfate 200 mg tablet 100 mg PO DAILY PRN Other 04/21/23 08/25/23 History tenofovir disoproxil fumarate 300 300 mg PO DAILY 04/21/23 08/25/23 History mg tablet meloxicam 15 mg tablet 15 mg PO DAILY #90 tabs 06/22/23 08/25/23 Rx tramadol 50 mg tablet 50 mg PO TID PRN pain #30 tabs 07/17/23 08/25/23 Rx vitamin K2 100 mcg capsule 100 mcg PO DAILY 07/17/23 08/25/23 History cyanocobalamin (vitamin B-12) 50 50 mcg PO DAILY 08/16/23 08/25/23 History mcg tablet (Vitamin B-12) magnesium 200 mg tablet 200 mg PO DAILY 08/16/23 08/25/23 History semaglutide 14 mg tablet 14 mg PO DAILY #90 tabs 08/22/23 08/25/23 Rx atorvastatin 40 mg tablet 40 mg PO HS #30 tabs 08/25/23 Rx clopidogrel 75 mg tablet 75 mg PO QAM #30 tabs 08/25/23 Rx lisinopril 30 mg tablet 30 mg PO DAILY #30 tabs 08/25/23 Rx Past Med/Surg History Problem List (Updated 08/25/23 @ 11:54 by Estefani Beltran PA-C) Cerebrovascular accident (Acute) Systolic murmur Palpitations TIA (transient ischemic attack) Abnormal magnetic resonance imaging of right breast Abnormal finding on imaging Left upper quadrant abdominal pain Hepatitis B Anxiety Nocturnal leg cramps Hepatitis B carrier Renal hematoma, left Arthritis of knee, left Diabetes mellitus (Chronic) Hyperlipidemia (Acute) Hypertension (Acute) Medical History (Updated 08/25/23 @ 11:54 by Estefani Beltran PA-C) Right knee DJD Surgical History (Updated 08/16/23 @ 10:15 by Shalini Chowdary RN) Hx of breast surgery Right breast lumpectomy H/O colonoscopy (2006) had cologuard 06/2023 History of cataract surgery History of right knee joint replacement H/O laparoscopy Hx laparoscopic cholecystectomy History of section times 2 History of appendectomy Family History (Updated 08/16/23 @ 10:16 by Shalini Chowdary RN) Grandfather No problems noted. Father Diabetes Hypertension Mother Diabetes Hypertension Denies family history of Ovarian cancer Breast cancer Colorectal cancer Social History (Updated 08/16/23 @ 10:17 by Shalini Chowdary RN) Smoking Status: Never smoker Do You Dip or Chew Tobacco: No; Hx Alcohol Use: No Hx Substance Use: No Preferred Language: Icelandic Communication Ability: Effective Rn Stars Required: No Beliefs That Will Affect Care: None marital status: Current Living Situation: Spouse current occupational status: employed current occupation: [employer] How many Children do You have: 2 Feels Safe at Home: Yes Diet: diabetic during the past year weight has: remained stable Review of Systems 2 Review of Systems: All systems reviewed and are unremarkable except as noted in HPI and below. Denies fever, chills, fatigue, headache, nasal congestion, sore throat, cough, chest pain, shortness of breath, palpitations, orthopnea, PND, abdominal pain, n/v/d, constipation, dysuria, hematuria, frequency, back pain, joint pain or swelling, easy bruising or bleeding, skin lesions or rashes. Physical Exam 2 Physical Exam: GENERAL: 67 yo wd/wn female. NAD. EYES: EOMI. PERRLA. Anicteric. HENT: Moist mucous membranes. No scleral icterus. No cervical lymphadenopathy. LUNGS: Clear to auscultation bilaterally. No accessory muscle use. No W/R/R. CARDIOVASCULAR: Regular rate and rhythm. No M/G/R. No JVD. ABDOMEN: Soft, non-tender and non-distended. No palpable masses. Bowel sounds normoactive x 4 quad. EXTREMITIES: No edema. Non-tender. Peripheral pulses +2/4. NEUROLOGIC: A&O x3. No focal neurological deficits. CN II-XII grossly intact. PSYCHIATRIC: Cooperative. Appropriate mood and affect. SKIN: Warm, dry, intact. No rashes or lesions. Results & Data Results & Data Vital Signs (Past 12 Hours) Vital Signs Temp Pulse Pulse Resp BP BP Pulse Ox 08/25/23 11:20 36.4 C L 62 16 153/81 H 96 08/25/23 10:34 68 08/25/23 09:48 74 19 166/87 H 98 08/25/23 09:30 74 19 166/87 H 98 08/25/23 08:45 72 16 161/91 H 97 08/25/23 07:12 70 08/25/23 06:55 36.0 C L 69 20 193/96 H 98 08/25/23 06:52 97 O2 Del Method 08/25/23 11:20 Room Air 08/25/23 10:34 08/25/23 09:48 Room Air 08/25/23 09:30 08/25/23 08:45 08/25/23 07:12 08/25/23 06:55 Room Air 08/25/23 06:52 Room Air Laboratory Results 08/25/23 07:16 08/25/23 07:[address] 08/25/23 07:[address] OF THE BRAIN; CT ANGIOGRAM OF THE BRAIN; CT ANGIOGRAM OF THE NECK CLINICAL HISTORY: Neurological deficit. Stroke like symptoms. COMPARISON STUDY: CT of the brain dated 02/04/2019 TECHNIQUE: Unenhanced axial CT scan of the brain is performed. Subsequently, following the IV administration of 112 of Optiray 320, CT angiogram of the head and neck was performed from the aortic arch to the vertex. Images are reviewed in the axial, sagittal, and coronal planes. 3-D MIPS images are created and assessed. IV contrast was administered without complication. All measurements were calculated based on NASCET criteria. A dose lowering technique was utilized adhering to the principles of ALARA. CT DOSE: 1135.84 mGy.cm FINDINGS: Brain parenchyma: There is age-related involutional change noting moderate subcortical and periventricular microangiopathic disease. There is a chronic lacunar infarct centered in the left internal capsule. There is no hemorrhage, mass effect, or evidence of acute territorial ischemia by CT criteria. There is no evidence of enhancing mass lesion on the angiogram phase images. The ventricles, sulci, and cisterns are prominent secondary to involutional change. Perez-white matter differentiation is preserved. No extra-axial fluid collection is seen. Thoracic aorta: Visualized portions of the thoracic aorta are normal in caliber. The aortic arch demonstrates standard 3-vessel anatomy. Right carotid arterial system: The right common carotid artery is widely patent, as are the right internal and external carotid arteries. There is mild calcified plaque in the proximal right ICA. Left carotid arterial system: The left common carotid artery is widely patent, as are the left internal and external carotid arteries. Mild calcified plaque is seen in the carotid bulb. Vertebral arteries: Widely patent bilaterally and codominant. Subclavian arteries: Widely patent bilaterally. Intracranial vasculature: There is atherosclerotic calcification of the cavernous carotid and vertebral arteries. The internal carotid arteries are patent at the skull base, as are the anterior and middle cerebral arteries bilaterally. The vertebrobasilar system and posterior cerebral arteries are widely patent. The vertebral arteries are codominant. There is no aneurysm, high-grade stenosis, or focal vessel cut off seen throughout the intracranial circulation. Jugular veins: Patent bilaterally. Dural sinuses: Patent. Lung apices: Partially visualized upper lobe lung parenchyma appears clear. Soft tissues: The visualized pharyngeal soft tissues are normal in appearance noting angiographic phase technique. The oropharyngeal airway appears widely patent. The salivary and thyroid glands are normal in appearance. No cervical lymphadenopathy is seen. Skeletal structures: The skeletal structures are osteopenic. The calvarium appears intact. The cervical spine is maintained noting multilevel spondylosis. Orbits: The bony orbits are intact. Orbital contents are normal as visualized noting a left ocular lens implants. Sinuses and mastoids: The paranasal sinuses are clear. The mastoid air cells are well pneumatized. IMPRESSION: 1. There is no hemorrhage, mass effect, or evidence of acute territorial ischemia by CT criteria. 2. Unremarkable CT angiogram of the brain. 3. Unremarkable CT angiogram of the neck. ACT 112: Negative or not required by law. Electronically signed by: Carlos Osborn M.D. 08/25/2023 8:06 AM Head CTA 08/25/23 07:[address] OF THE BRAIN; CT ANGIOGRAM OF THE BRAIN; CT ANGIOGRAM OF THE NECK CLINICAL HISTORY: Neurological deficit. Stroke like symptoms. COMPARISON STUDY: CT of the brain dated 02/04/2019 TECHNIQUE: Unenhanced axial CT scan of the brain is performed. Subsequently, following the IV administration of 112 of Optiray 320, CT angiogram of the head and neck was performed from the aortic arch to the vertex. Images are reviewed in the axial, sagittal, and coronal planes. 3-D MIPS images are created and assessed. IV contrast was administered without complication. All measurements were calculated based on NASCET criteria. A dose lowering technique was utilized adhering to the principles of ALARA. CT DOSE: 1135.84 mGy.cm FINDINGS: Brain parenchyma: There is age-related involutional change noting moderate subcortical and periventricular microangiopathic disease. There is a chronic lacunar infarct centered in the left internal capsule. There is no hemorrhage, mass effect, or evidence of acute territorial ischemia by CT criteria. There is no evidence of enhancing mass lesion on the angiogram phase images. The ventricles, sulci, and cisterns are prominent secondary to involutional change. Perez-white matter differentiation is preserved. No extra-axial fluid collection is seen. Thoracic aorta: Visualized portions of the thoracic aorta are normal in caliber. The aortic arch demonstrates standard 3-vessel anatomy. Right carotid arterial system: The right common carotid artery is widely patent, as are the right internal and external carotid arteries. There is mild calcified plaque in the proximal right ICA. Left carotid arterial system: The left common carotid artery is widely patent, as are the left internal and external carotid arteries. Mild calcified plaque is seen in the carotid bulb. Vertebral arteries: Widely patent bilaterally and codominant. Subclavian arteries: Widely patent bilaterally. Intracranial vasculature: There is atherosclerotic calcification of the cavernous carotid and vertebral arteries. The internal carotid arteries are patent at the skull base, as are the anterior and middle cerebral arteries bilaterally. The vertebrobasilar system and posterior cerebral arteries are widely patent. The vertebral arteries are codominant. There is no aneurysm, high-grade stenosis, or focal vessel cut off seen throughout the intracranial circulation. Jugular veins: Patent bilaterally. Dural sinuses: Patent. Lung apices: Partially visualized upper lobe lung parenchyma appears clear. Soft tissues: The visualized pharyngeal soft tissues are normal in appearance noting angiographic phase technique. The oropharyngeal airway appears widely patent. The salivary and thyroid glands are normal in appearance. No cervical lymphadenopathy is seen. Skeletal structures: The skeletal structures are osteopenic. The calvarium appears intact. The cervical spine is maintained noting multilevel spondylosis. Orbits: The bony orbits are intact. Orbital contents are normal as visualized noting a left ocular lens implants. Sinuses and mastoids: The paranasal sinuses are clear. The mastoid air cells are well pneumatized. IMPRESSION: 1. There is no hemorrhage, mass effect, or evidence of acute territorial ischemia by CT criteria. 2. Unremarkable CT angiogram of the brain. 3. Unremarkable CT angiogram of the neck. ACT 112: Negative or not required by law. Electronically signed by: Carlos Osborn M.D. 08/25/2023 8:06 AM Neck CTA 08/25/23 07:[address] OF THE BRAIN; CT ANGIOGRAM OF THE BRAIN; CT ANGIOGRAM OF THE NECK CLINICAL HISTORY: Neurological deficit. Stroke like symptoms. COMPARISON STUDY: CT of the brain dated 02/04/2019 TECHNIQUE: Unenhanced axial CT scan of the brain is performed. Subsequently, following the IV administration of 112 of Optiray 320, CT angiogram of the head and neck was performed from the aortic arch to the vertex. Images are reviewed in the axial, sagittal, and coronal planes. 3-D MIPS images are created and assessed. IV contrast was administered without complication. All measurements were calculated based on NASCET criteria. A dose lowering technique was utilized adhering to the principles of ALARA. CT DOSE: 1135.84 mGy.cm FINDINGS: Brain parenchyma: There is age-related involutional change noting moderate subcortical and periventricular microangiopathic disease. There is a chronic lacunar infarct centered in the left internal capsule. There is no hemorrhage, mass effect, or evidence of acute territorial ischemia by CT criteria. There is no evidence of enhancing mass lesion on the angiogram phase images. The ventricles, sulci, and cisterns are prominent secondary to involutional change. Perez-white matter differentiation is preserved. No extra-axial fluid collection is seen. Thoracic aorta: Visualized portions of the thoracic aorta are normal in caliber. The aortic arch demonstrates standard 3-vessel anatomy. Right carotid arterial system: The right common carotid artery is widely patent, as are the right internal and external carotid arteries. There is mild calcified plaque in the proximal right ICA. Left carotid arterial system: The left common carotid artery is widely patent, as are the left internal and external carotid arteries. Mild calcified plaque is seen in the carotid bulb. Vertebral arteries: Widely patent bilaterally and codominant. Subclavian arteries: Widely patent bilaterally. Intracranial vasculature: There is atherosclerotic calcification of the cavernous carotid and vertebral arteries. The internal carotid arteries are patent at the skull base, as are the anterior and middle cerebral arteries bilaterally. The vertebrobasilar system and posterior cerebral arteries are widely patent. The vertebral arteries are codominant. There is no aneurysm, high-grade stenosis, or focal vessel cut off seen throughout the intracranial circulation. Jugular veins: Patent bilaterally. Dural sinuses: Patent. Lung apices: Partially visualized upper lobe lung parenchyma appears clear. Soft tissues: The visualized pharyngeal soft tissues are normal in appearance noting angiographic phase technique. The oropharyngeal airway appears widely patent. The salivary and thyroid glands are normal in appearance. No cervical lymphadenopathy is seen. Skeletal structures: The skeletal structures are osteopenic. The calvarium appears intact. The cervical spine is maintained noting multilevel spondylosis. Orbits: The bony orbits are intact. Orbital contents are normal as visualized noting a left ocular lens implants. Sinuses and mastoids: The paranasal sinuses are clear. The mastoid air cells are well pneumatized. IMPRESSION: 1. There is no hemorrhage, mass effect, or evidence of acute territorial ischemia by CT criteria. 2. Unremarkable CT angiogram of the brain. 3. Unremarkable CT angiogram of the neck. ACT 112: Negative or not required by law. Electronically signed by: Carlos Osborn M.D. 08/25/2023 8:06 AM Code Status & VTE Plan Code Status Full VTE Prophylaxis Plan VTE Prophylaxis will be ordered: Yes Supervising Physician Co-Signing Physician Notes I personally examined the patient and verified all paul points of history and exam, discussed case, and agree with decision making with Malina Beltran PAC feels well and feels up to going home. Discussed stroke extensivelydiscussed almost certainly intracranial atherosclerosismain risk being diabetes with A1c of 8.5, but also hypertension, dyslipidemia. Vitals noted, in general she is awake and alert pleasant no distress. HEENT normocephalic atraumatic mucous membranes moist. Breathing unlabored no accessory muscle use good effort. Skin without rashes pallor or icterus. Labs and diagnostics noted. Strokealmost certainly intracranial atherosclerotic mechanism. Plavix loaded, aspirin given. Dual antiplatelets for 3 weeks followed by Plavix alone. Secondary risk factor reductiondiscussed lifestyle change for type 2 diabetes, PCP can titrate medications further if lifestyle change alone is not affecting impact. Escalate lisinopril (particularly given that she is probably about a week removed from the stroke), escalate statin. Safe/stable for home. Close outpatient PCP follow-up. PG Care Time/CCT Total # of Minutes Spent Total Time Spent with Patient: Total time spent is greater than 50% in coordination of care (as documented) at patient's floor/unit and/or counseling patient: Coding Level of Care Code 40573 INT INP/OBS CARE MIN Diagnoses Cerebrovascular accident (CVA), unspecified mechanism I63.9 CVA mechanism: unspecified Primary hypertension I10 Hypertension type: primary hypertension Mixed hyperlipidemia E78.2 Hyperlipidemia type: mixed hyperlipidemia Type 2 diabetes mellitus with diabetic polyneuropathy, without long-term current use of insulin E11.42 Diabetes mellitus complication detail: with polyneuropathy Diabetes mellitus complication status: with neurologic complications Diabetes mellitus assisted insulin use: without assisted use Diabetes mellitus type: type 2 Anxiety F41.9 (1) Cerebrovascular accident CVA mechanism: unspecified Qualified Code(s): I63.9 - Cerebral infarction, unspecified (2) Hypertension Hypertension type: primary hypertension Qualified Code(s): I10 - Essential (primary) hypertension (3) Hyperlipidemia Hyperlipidemia type: mixed hyperlipidemia Qualified Code(s): E78.2 - Mixed hyperlipidemia (4) Diabetes mellitus Diabetes mellitus complication detail: with polyneuropathy Diabetes mellitus complication status: with neurologic complications 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
[2023-08-25 15:19] VITALS: BP 157/78; RESP 18; TEMP 97.7; O2SAT 97
--- NOTE | 2023-08-25 16:17 | XCELERA ---
[id number] \\[id number]
[2023-08-25] MEDS ORDERED: STROKE PATIENT DISCHARGE STA (17:03)
--- NOTE | 2023-08-25 17:06 | Discharge Summary ---
Date of Service August 25, 2023 Admission HPI Per Admitting Provider Duyen Roque is a 67 yo F with a pmhx of HTN, HLD, DMT2, anxiety and recent abnormal mammogram s/p right breast lumpectomy who presents to the ER from radiology due to abnormal brain MRI. 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 She also noted some tingling/burning sensation on the right side of her face. Her symptoms were more noticeable on Monday and she contacted her PCP right away. She was ordered an MRI which was performed this morning as an outpatient with findings of an 8 mm acute lacunar infarct of the left thalamus. Her right arm and leg weakness has nearly resolved but she still has some abnormal sensation on the right side of her face. She denies chest pain, dyspnea, numbness or tingling in her arm, hands, legs or feet. She denies focal weakness including loss of nurses medical assistants phlebotomists strength and denies garbled or slurred speech. She chronically takes Atorvastatin 20mg daily and Aspirin 81mg daily (which she has taken for the past year). She denies chest pain, dyspnea, n/v/d, f/c, headache, difficulty swallowing, or gu symptoms. ER w/u included CTA head/neck which was unremarkable. She was given a dose of Plavix by the ER physician and referred for admission for acute stroke. Principal Diagnosis acute left thalamic lacunar cva Discharge Exam GENERAL: 67 yo wd/wn female. NAD. EYES: EOMI. PERRLA. Anicteric. HENT: Moist mucous membranes. No scleral icterus. No cervical lymphadenopathy. LUNGS: Clear to auscultation bilaterally. No accessory muscle use. No W/R/R. CARDIOVASCULAR: Regular rate and rhythm. No M/G/R. No JVD. ABDOMEN: Soft, non-tender and non-distended. No palpable masses. Bowel sounds normoactive x 4 quad. EXTREMITIES: No edema. Non-tender. Peripheral pulses +2/4. NEUROLOGIC: A&O x3. No focal neurological deficits. CN II-XII grossly intact. PSYCHIATRIC: Cooperative. Appropriate mood and affect. SKIN: Warm, dry, intact. No rashes or lesions. Discharge Data Allergies Allergy/AdvReac Type Severity Reaction Status Date / Time amoxicillin Allergy Intermediate rash Verified 08/22/23 13:33 dapagliflozin [From [facility]] AdvReac Mild Rash Verified 08/22/23 13:33 Consultations 08/25/23 08:54 ED Decision to Admit Stat Ordered Studies 08/25/23 07:16 08/25/23 07:[address] 08/25/23 07:[address] OF THE BRAIN; CT ANGIOGRAM OF THE BRAIN; CT ANGIOGRAM OF THE NECK CLINICAL HISTORY: Neurological deficit. Stroke like symptoms. COMPARISON STUDY: CT of the brain dated 02/04/2019 TECHNIQUE: Unenhanced axial CT scan of the brain is performed. Subsequently, following the IV administration of 112 of Optiray 320, CT angiogram of the head and neck was performed from the aortic arch to the vertex. Images are reviewed in the axial, sagittal, and coronal planes. 3-D MIPS images are created and assessed. IV contrast was administered without complication. All measurements were calculated based on NASCET criteria. A dose lowering technique was utilized adhering to the principles of ALARA. CT DOSE: 1135.84 mGy.cm FINDINGS: Brain parenchyma: There is age-related involutional change noting moderate subcortical and periventricular microangiopathic disease. There is a chronic lacunar infarct centered in the left internal capsule. There is no hemorrhage, mass effect, or evidence of acute territorial ischemia by CT criteria. There is no evidence of enhancing mass lesion on the angiogram phase images. The ventricles, sulci, and cisterns are prominent secondary to involutional change. Perez-white matter differentiation is preserved. No extra-axial fluid collection is seen. Thoracic aorta: Visualized portions of the thoracic aorta are normal in caliber. The aortic arch demonstrates standard 3-vessel anatomy. Right carotid arterial system: The right common carotid artery is widely patent, as are the right internal and external carotid arteries. There is mild calcified plaque in the proximal right ICA. Left carotid arterial system: The left common carotid artery is widely patent, as are the left internal and external carotid arteries. Mild calcified plaque is seen in the carotid bulb. Vertebral arteries: Widely patent bilaterally and codominant. Subclavian arteries: Widely patent bilaterally. Intracranial vasculature: There is atherosclerotic calcification of the cavernous carotid and vertebral arteries. The internal carotid arteries are patent at the skull base, as are the anterior and middle cerebral arteries bilaterally. The vertebrobasilar system and posterior cerebral arteries are widely patent. The vertebral arteries are codominant. There is no aneurysm, high-grade stenosis, or focal vessel cut off seen throughout the intracranial circulation. Jugular veins: Patent bilaterally. Dural sinuses: Patent. Lung apices: Partially visualized upper lobe lung parenchyma appears clear. Soft tissues: The visualized pharyngeal soft tissues are normal in appearance noting angiographic phase technique. The oropharyngeal airway appears widely patent. The salivary and thyroid glands are normal in appearance. No cervical lymphadenopathy is seen. Skeletal structures: The skeletal structures are osteopenic. The calvarium appears intact. The cervical spine is maintained noting multilevel spondylosis. Orbits: The bony orbits are intact. Orbital contents are normal as visualized noting a left ocular lens implants. Sinuses and mastoids: The paranasal sinuses are clear. The mastoid air cells are well pneumatized. IMPRESSION: 1. There is no hemorrhage, mass effect, or evidence of acute territorial ischemia by CT criteria. 2. Unremarkable CT angiogram of the brain. 3. Unremarkable CT angiogram of the neck. ACT 112: Negative or not required by law. Electronically signed by: Carlos Osborn M.D. 08/25/2023 8:06 AM Head CTA 08/25/23 07:[address] OF THE BRAIN; CT ANGIOGRAM OF THE BRAIN; CT ANGIOGRAM OF THE NECK CLINICAL HISTORY: Neurological deficit. Stroke like symptoms. COMPARISON STUDY: CT of the brain dated 02/04/2019 TECHNIQUE: Unenhanced axial CT scan of the brain is performed. Subsequently, following the IV administration of 112 of Optiray 320, CT angiogram of the head and neck was performed from the aortic arch to the vertex. Images are reviewed in the axial, sagittal, and coronal planes. 3-D MIPS images are created and assessed. IV contrast was administered without complication. All measurements were calculated based on NASCET criteria. A dose lowering technique was utilized adhering to the principles of ALARA. CT DOSE: 1135.84 mGy.cm FINDINGS: Brain parenchyma: There is age-related involutional change noting moderate subcortical and periventricular microangiopathic disease. There is a chronic lacunar infarct centered in the left internal capsule. There is no hemorrhage, mass effect, or evidence of acute territorial ischemia by CT criteria. There is no evidence of enhancing mass lesion on the angiogram phase images. The ventricles, sulci, and cisterns are prominent secondary to involutional change. Perez-white matter differentiation is preserved. No extra-axial fluid collection is seen. Thoracic aorta: Visualized portions of the thoracic aorta are normal in caliber. The aortic arch demonstrates standard 3-vessel anatomy. Right carotid arterial system: The right common carotid artery is widely patent, as are the right internal and external carotid arteries. There is mild calcified plaque in the proximal right ICA. Left carotid arterial system: The left common carotid artery is widely patent, as are the left internal and external carotid arteries. Mild calcified plaque is seen in the carotid bulb. Vertebral arteries: Widely patent bilaterally and codominant. Subclavian arteries: Widely patent bilaterally. Intracranial vasculature: There is atherosclerotic calcification of the cavernous carotid and vertebral arteries. The internal carotid arteries are patent at the skull base, as are the anterior and middle cerebral arteries bilaterally. The vertebrobasilar system and posterior cerebral arteries are widely patent. The vertebral arteries are codominant. There is no aneurysm, high-grade stenosis, or focal vessel cut off seen throughout the intracranial circulation. Jugular veins: Patent bilaterally. Dural sinuses: Patent. Lung apices: Partially visualized upper lobe lung parenchyma appears clear. Soft tissues: The visualized pharyngeal soft tissues are normal in appearance noting angiographic phase technique. The oropharyngeal airway appears widely patent. The salivary and thyroid glands are normal in appearance. No cervical lymphadenopathy is seen. Skeletal structures: The skeletal structures are osteopenic. The calvarium appears intact. The cervical spine is maintained noting multilevel spondylosis. Orbits: The bony orbits are intact. Orbital contents are normal as visualized noting a left ocular lens implants. Sinuses and mastoids: The paranasal sinuses are clear. The mastoid air cells are well pneumatized. IMPRESSION: 1. There is no hemorrhage, mass effect, or evidence of acute territorial ischemia by CT criteria. 2. Unremarkable CT angiogram of the brain. 3. Unremarkable CT angiogram of the neck. ACT 112: Negative or not required by law. Electronically signed by: Carlos Osborn M.D. 08/25/2023 8:06 AM Neck CTA 08/25/23 07:[address] OF THE BRAIN; CT ANGIOGRAM OF THE BRAIN; CT ANGIOGRAM OF THE NECK CLINICAL HISTORY: Neurological deficit. Stroke like symptoms. COMPARISON STUDY: CT of the brain dated 02/04/2019 TECHNIQUE: Unenhanced axial CT scan of the brain is performed. Subsequently, following the IV administration of 112 of Optiray 320, CT angiogram of the head and neck was performed from the aortic arch to the vertex. Images are reviewed in the axial, sagittal, and coronal planes. 3-D MIPS images are created and assessed. IV contrast was administered without complication. All measurements were calculated based on NASCET criteria. A dose lowering technique was utilized adhering to the principles of ALARA. CT DOSE: 1135.84 mGy.cm FINDINGS: Brain parenchyma: There is age-related involutional change noting moderate subcortical and periventricular microangiopathic disease. There is a chronic lacunar infarct centered in the left internal capsule. There is no hemorrhage, mass effect, or evidence of acute territorial ischemia by CT criteria. There is no evidence of enhancing mass lesion on the angiogram phase images. The ventricles, sulci, and cisterns are prominent secondary to involutional change. Perez-white matter differentiation is preserved. No extra-axial fluid collection is seen. Thoracic aorta: Visualized portions of the thoracic aorta are normal in caliber. The aortic arch demonstrates standard 3-vessel anatomy. Right carotid arterial system: The right common carotid artery is widely patent, as are the right internal and external carotid arteries. There is mild calcified plaque in the proximal right ICA. Left carotid arterial system: The left common carotid artery is widely patent, as are the left internal and external carotid arteries. Mild calcified plaque is seen in the carotid bulb. Vertebral arteries: Widely patent bilaterally and codominant. Subclavian arteries: Widely patent bilaterally. Intracranial vasculature: There is atherosclerotic calcification of the cavernous carotid and vertebral arteries. The internal carotid arteries are patent at the skull base, as are the anterior and middle cerebral arteries bilaterally. The vertebrobasilar system and posterior cerebral arteries are widely patent. The vertebral arteries are codominant. There is no aneurysm, high-grade stenosis, or focal vessel cut off seen throughout the intracranial circulation. Jugular veins: Patent bilaterally. Dural sinuses: Patent. Lung apices: Partially visualized upper lobe lung parenchyma appears clear. Soft tissues: The visualized pharyngeal soft tissues are normal in appearance noting angiographic phase technique. The oropharyngeal airway appears widely patent. The salivary and thyroid glands are normal in appearance. No cervical lymphadenopathy is seen. Skeletal structures: The skeletal structures are osteopenic. The calvarium appears intact. The cervical spine is maintained noting multilevel spondylosis. Orbits: The bony orbits are intact. Orbital contents are normal as visualized noting a left ocular lens implants. Sinuses and mastoids: The paranasal sinuses are clear. The mastoid air cells are well pneumatized. IMPRESSION: 1. There is no hemorrhage, mass effect, or evidence of acute territorial ischemia by CT criteria. 2. Unremarkable CT angiogram of the brain. 3. Unremarkable CT angiogram of the neck. ACT 112: Negative or not required by law. Electronically signed by: Carlos Osborn M.D. 08/25/2023 8:06 AM Hospital Course (1) Cerebrovascular accident: Acute/unstable - Brain MRI with 8mm acute lacunar infarct of the left thalamus - Start Plavix and continue Aspirin for DAPT x 3 weeks, then can de-escalate to monotherapy - Transthoracic echocardiogram ordered/completed, LVEF WNL and no valvular abnormalities, no thrombus appreciated. - Increase Atorvastatin to 40mg q day upon discharge (increase from 20mg daily) - Will require tighter blood sugar control to reduce further risk of future events - Outpatient PCP follow up (2) Hypertension: Chronic/stable - Continue Lisinopril and Amlodipine - Would benefit from tighter BP control, increase Lisinopril to 30mg daily (current home dose=20mg) (3) Hyperlipidemia: Chronic/stable - Continue Atorvastatin with increase to 40mg daily in light of acute CVA (4) Diabetes mellitus: Chronic with intermediate control - Most recent hemoglobin a1c was 8.5% - Currently on a regimen of Semaglutide 14mg daily (orally) and Metformin 1000mg BID - Would consider trial of GLP1 subcutaneously such as Trulicity or Ozempic weekly for improved BSG control (5) Anxiety: Chronic/stable - Continue Lorazepam 0.5mg daily prn Plan Patient is medically and hemodynamically stable for discharge home today with outpatient follow up. Above plan of care has been d/w Dr. Yuan who will also see and evaluate this patient. Total time for this encounter took 70 minutes including face to face, review of chart, medication reconciliation, documentation in ehr. Total Time Total Time Spent Total Time Spent (In Minutes): 35 minutes Discharge Plan Discharge Items Patient Disposition: Home - Self-Care Reason For Visit: STROKE Discharge Diagnosis: Acute stroke Activity: Resume your previous activity Non-emergency contact: Primary Care Provider Call non-emergency contact if: you have any medication questions and your symptoms worsen Follow-up/Referrals: Colton Paul MD [Primary Care Provider] - 08/30/23 2:45 pm (Scheduled 08/30/23 at 2:45 with Eddie Marinelli PA-C) Diet: Carb Consistent or DM2 Addtl Attending Provider Instructions: You were hospitalized due to an acute stroke. You are going to be treated with two anti-platelet medications as previously discussed. This will include taking Aspirin 81mg daily and Plavix 75mg daily. You will continue this combination for a total of 3 weeks, at which time, your primary care provider can advise which medication you should continue usp. Your Lipitor has also been increased from 20mg to 40mg daily. Please continue this dose until otherwise instructed. You can take TWO of your 20mg tablets so they are not wasted to equal a total of 40mg. A new script for the 40mg tablets has been sent electronically to your pharmacy. Your Lisinopril has also been increased from 20mg to 30mg daily. Please take this new dose as prescribed. This is to ensure that your blood pressure remains controlled to reduce risk of future strokes or heart attacks. Lastly, you will need to ensure you are following a good diet. This should be high in lean protein such as chicken or fish and low in carbohydrates. Remember, that carbohydrates are not only in breads, pastas, etc. They are also in fruit and vegetables. Try to follow a low carb diet and avoid sugary drinks. Follow up with your PCP within 5-7 days of discharge. In the event of a medical emergency, call 911 or go to the ER for prompt medical attention. Pending Studies at Discharge: No Stand-Alone Forms: My [facility] [employer], Smoking Cessation Medications and DC Order Prescriptions: New clopidogrel 75 mg Tablet 75 mg PO QAM Qty: 30 0RF atorvastatin 40 mg tablet 40 mg PO HS Qty: 30 0RF lisinopril 30 mg tablet 30 mg PO DAILY Qty: 30 0RF Continued aspirin [Barney Low Dose Aspirin] 81 mg tablet,delayed release (DR/EC) 81 mg PO DAILY Qty: 90 3RF meloxicam 15 mg tablet 15 mg PO DAILY Qty: 90 3RF multivitamin [Daily Multiple] Tablet 1 tab PO DAILY lorazepam 0.5 mg tablet 0.5 mg PO DAILY PRN (Reason: anxiety ) cinnamon bark 1 cap PO UD Rx Instructions: otc as directed turmeric 1 cap PO UD Rx Instructions: otc as directed tenofovir disoproxil fumarate 300 mg tablet 300 mg PO DAILY quinidine sulfate 200 mg tablet 100 mg PO DAILY PRN (Reason: Other) Rx Instructions: prior to sleep amlodipine 5 mg tablet 5 mg PO BID Qty: 180 3RF metformin 500 mg tablet 1,000 mg PO BID Qty: 360 3RF Rx Instructions: needs 90 day rx Vitamin B-12 50 mcg tablet 50 mcg PO DAILY magnesium 200 mg tablet 200 mg PO DAILY semaglutide 14 mg tablet 14 mg PO DAILY Qty: 90 3RF vitamin K2 100 mcg capsule 100 mcg PO DAILY tramadol 50 mg tablet 50 mg PO TID PRN (Reason: pain) Qty: 30 1RF Discontinued atorvastatin 20 mg tablet 20 mg PO DAILY Qty: 90 3RF lisinopril 20 mg tablet 20 mg PO DAILY Qty: 90 3RF Discharge Orders: Discharge Order (Routine); Ordered 08/25/23 Ordered By: Estefani Beltran Admission Data Admit Date/Time: 08/25/23 08:48 Attending Provider: Nick Yuan Admit Provider: Nick Yuan Primary Care Provider: Colton Paul Other Providers: Nick Yuan Other Interventions: Discharge Summary Assessment (RN) Last Done: 08/25/23 17:07 Supervising Physician Co-Signing Physician Notes I personally examined the patient and verified all paul points of history and exam, discussed case, and agree with decision making with Malina Beltran PAC feels well and feels up to going home. Discussed stroke extensivelydiscussed almost certainly intracranial atherosclerosismain risk being diabetes with A1c of 8.5, but also hypertension, dyslipidemia. Vitals noted, in general she is awake and alert pleasant no distress. HEENT normocephalic atraumatic mucous membranes moist. Breathing unlabored no accessory muscle use good effort. Skin without rashes pallor or icterus. Labs and diagnostics noted. Strokealmost certainly intracranial atherosclerotic mechanism. Plavix loaded, aspirin given. Dual antiplatelets for 3 weeks followed by Plavix alone. Secondary risk factor reductiondiscussed lifestyle change for type 2 diabetes, PCP can titrate medications further if lifestyle change alone is not affecting impact. Escalate lisinopril (particularly given that she is probably about a week removed from the stroke), escalate statin. Safe/stable for home. Close outpatient PCP follow-up. Coding Level of Care Code INP/OBS EV SAME DAY LV 3,85MIN Diagnoses Cerebrovascular accident (CVA), unspecified mechanism I63.9 CVA mechanism: unspecified Primary hypertension I10 Hypertension type: primary hypertension Mixed hyperlipidemia E78.2 Hyperlipidemia type: mixed hyperlipidemia Type 2 diabetes mellitus with diabetic polyneuropathy, without long-term current use of insulin E11.42 Diabetes mellitus complication detail: with polyneuropathy Diabetes mellitus complication status: with neurologic complications Diabetes mellitus buttermaker continuous churn insulin use: without usp use Diabetes mellitus type: type 2 Anxiety F41.9
[2023-08-25 17:09] VITALS: PULSE 68
--- NOTE | 2023-08-26 05:51 | Electrocardiogram Report ---
Test Reason : Blood Pressure : / mmHG Vent. Rate : 069 BPM Atrial Rate : 069 BPM P-R Int : 110 ms QRS Dur : 090 ms QT Int : 392 ms P-R-T Axes : 040 014 -08 degrees QTc Int : 420 ms Sinus rhythm with short MI Inferior infarct , age undetermined Possible Anterior infarct , age undetermined Abnormal ECG When compared with ECG of 14-APR-2017 13:41, Borderline criteria for Anterior infarct are now Present Inferior infarct is now Present Confirmed by William Zaidi ([id number]) on 08/26/2023 5:51:29 AM Referred By: REFERRED SELF Confirmed By:William Zaidi
[2023-08-26] MEDS ORDERED: lisinopril 10 MG TAB PO SCH (09:00)
[2023-08-26] MEDS ORDERED: CLOPIDOGREL BISULFATE 75 MG TAB PO SCH (09:00)
[2023-08-26] MEDS ORDERED: ASPIRIN 81 MG ECTAB PO SCH (09:00)
--- NOTE | 2023-08-28 11:00 | Pharmacy Report ---
Pharmacist Stroke Counseling - Date of Service August 28, 2023 - Scope: Pharmacy has been consulted to provide medication discharge counseling for this patient admitted with [ischemic stroke] [hemorrhagic stroke] [transient ischemic attack] as per the Pharmacist Discharge Counseling for Stroke Patients Audrey rubio - Medications on Discharge: Home Medications Medication Instructions Recorded Confirmed lorazepam 0.5 mg tablet 0.5 mg PO DAILY PRN anxiety 06/12/19 08/25/23 multivitamin (Daily Multiple 1 tab PO DAILY 06/12/19 08/25/23 tablet) cinnamon bark 1 cap PO UD 04/20/22 08/25/23 turmeric 1 cap PO UD 04/20/22 08/25/23 quinidine sulfate 200 mg tablet 100 mg PO DAILY PRN Other 04/21/23 08/25/23 tenofovir disoproxil fumarate 300 300 mg PO DAILY 04/21/23 08/25/23 mg tablet vitamin K2 100 mcg capsule 100 mcg PO DAILY 07/17/23 08/25/23 cyanocobalamin (vitamin B-12) 50 50 mcg PO DAILY 08/16/23 08/25/23 mcg tablet (Vitamin B-12) magnesium 200 mg tablet 200 mg PO DAILY 08/16/23 08/25/23 New Rx's Medication Instructions Recorded aspirin 81 mg tablet,delayed 81 mg PO DAILY #90 tabs 10/31/22 release (Barney Low Dose Aspirin) amlodipine 5 mg tablet 5 mg PO BID #180 tabs 04/21/23 metformin 500 mg tablet 1,000 mg (2 x 500 mg) PO BID #360 04/21/23 tabs meloxicam 15 mg tablet 15 mg PO DAILY #90 tabs 06/22/23 tramadol 50 mg tablet 50 mg PO TID PRN pain #30 tabs 07/17/23 semaglutide 14 mg tablet 14 mg PO DAILY #90 tabs 08/22/23 atorvastatin 40 mg tablet 40 mg PO HS #30 tabs 08/25/23 clopidogrel 75 mg tablet 75 mg PO QAM #30 tabs 08/25/23 lisinopril 30 mg tablet 30 mg PO DAILY #30 tabs 08/25/23 - Action: The above medications, specifically ones for stroke treatment/prophylaxis, have been reviewed in detail with the patient and/or patient industrial sales representative(s) prior to discharge. This includes indication, common adverse reactions, drug interactions, and medication administration. Medication counseling has been employed using the teach-back method to ensure understanding. - Outcome: The patient and/or patient industrial sales representative(s) have demonstrated understanding of the medications. Additional comments: Spoke with Mauraerica this AM, She has picked up and begun taking her medications. Reviewed newly added Plavix to be taken with aspirin for at least the short term. Reviewed that the combination can increase bleeding risk and that she should tell her doctor, dentist, and surgeon that she is taking. She has a history of diabetes and is on semaglutide. I confirmed with her that she has no history of atrial fibrillation. She is aware of the recent dose increases in her atorvastatin, lisinopril, and semaglutide. All questions answered. Thank you for allowing pharmacy to be involved in the care of this patient. Please call [phone] with any additional questions
== END 2023-08-25 17:57 | disposition home or self-care (01) ==
LOC: ED 06:51 → 2S 06:51